=== PATIENT | female | born 1970 | race Caucasian/White ===

== ENCOUNTER → 2017-02-10 | Outpatient (CLI) | payer MEDICAID ==
[~2017-02-10] MED LIST: ATOR40TA PO; BACL10TA2 PO; BUPR150T5 PO; DICL13PA TD; DICL75TA PO; GABA-282 PO; HYDR-3713 PO; LISI-538 PO; MOBI15TA PO; OXYB5TA PO; PARO20TA3 PO; PAXI20TA3 PO; SOMA350T PO; TRAM50TA2 PO; VENL75CA47 PO; VITA500046 PO; hctz PO
--- NOTE | 2017-02-22 00:47 | ECWPNPC ---
PATIENT NAME: PIO OATES : 1970 GENDER: FEMALE VISIT DATE: 02/10/2017 DISCHARGE DATE: 02/10/17 1045 VISIT LOCKED DATE TIME: PHYSICIAN: DOROTHY NELSON RESOURCE: DOROTHY NELSON REASON FOR APPOINTMENT 1. BACK HISTORY OF PRESENT ILLNESS HISTORY OF PRESENT ILLNESS: HERE FOR F/U AND MANAGEMENT OF PERSISTENT NECK AND LOW BACK PAIN.LOW BACK IS WORSE AREA OPF PAIN.RATING PAIN VAS 8/10.PAIN AGGREVATED BY STANDING,SITTING AND LIFTING.CURRENTLY USING HYDROCODONE 10/325 UP TO 2 X DAY PRN FOR SEVERE PAIN EPISODES W SOME RELIEF. STATES MEDICATION IS HELPFUL AT KEEPING HER FUNCTIONAL.RECENTLY FELL AND INJURED LEFT KNEE.FOLLOWS WITH ORTHOPEDIC GROUP IN [place] AND MAY BE HAVING LEFT KNEE SURGERY.C/O LEFT LBP WORSE AREA OF PAIN. PAIN THE PATIENT DESCRIBES THE PAIN... THE PATIENT DESCRIBES THE PAIN... THE PATIENT DESCRIBES THE PAIN... FALL RISK SCREENING: SCREENING :NO FALLS IN THE PAST YEAR CURRENT MEDICATIONS TAKING NAPROXEN 500 MG TABLET 1 TABLET NEEDED ORALLY EVERY 12 HRS TAKING OXYBUTYNIN CHLORIDE 5 MG TABLET 1 TABLET ORALLY TWICE A DAY TAKING BUPROPION HCL ER (SR) 150 MG TABLET EXTENDED RELEASE 12 HOUR 1 TABLET ORALLY TWICE A DAY TAKING VENLAFAXINE HCL ER 75 MG CAPSULE EXTENDED RELEASE 24 HOUR 1 CAPSULE WITH FOOD ORALLY ONCE A DAY TAKING LISINOPRIL 20 MG TABLET 1 TABLET ORALLY ONCE A DAY TAKING ATORVASTATIN CALCIUM 40 MG TABLET 1 TABLET ORALLY ONCE A DAY TAKING HYDROCHLOROTHIAZIDE 25 MG TABLET 1 TABLET ORALLY ONCE A DAY TAKING PAROXETINE HCL 20 MG TABLET 1 TABLET IN THE MORNING ORALLY ONCE A DAY TAKING HYDROCODONE-ACETAMINOPHEN 10-325 MG TABLET 1 TABLET ORALLY Q6H PRN PAIN MDD4 TAKING BACLOFEN 20 MG TABLET 1 TABLET WITH FOOD OR MILK ORALLY QID TAKING GABAPENTIN 300 MG CAPSULE 2 CAPSULE ORALLY TID TAKING DICLOFENAC 75 MG CAPSULE 1 CAPSULE ORALLY BID NOT-TAKING ARTHROTEC 50-0.2 MG TABLET DELAYED RELEASE 1 TABLET ORALLY TWICE A DAY NOT-TAKING VALIUM 10 MG TABLET 1 ORALLY 1 TAB 1HR PRE PROC MDD1 NOT-TAKING ARTHROTEC 75-0.2 MG TABLET DELAYED RELEASE 1 TABLET ORALLY TWICE A DAY NOT-TAKING ARTHROTEC 50-0.2 MG TABLET DELAYED RELEASE 1 TABLET ORALLY TWICE A DAY NOT-TAKING FEMRING 0.05 MG/24HR RING VAGINAL EVERY 3 MOS MEDICATION LIST REVIEWED AND RECONCILED WITH THE PATIENT PAST MEDICAL HISTORY HTN HYPERLIPIDEMIA DEPRESSION ANXIETY LOW BACK PAIN OSTEOARTHRITIS CERVICLE CANCER ALLERGIES PENICILLIN (FOR ALLERGIES USE ONLY): HIVES FEVER: ALLERGY SULFA (FOR ALLERGY USE ONLY) SURGICAL HISTORY TOTAL HYSTERECTOMY 01/2008 APPENDECTOMY 01/2008 2 UMBILICAL HERNIAS REPAIRED 01/2008 RIGHT CARPAL TUNNEL REPAIR 02/2005 LEFT CARPAL TUNNEL REPAIR 04/2005 LEFT ROTATOR CUFF REPAIR 03/2014 SOCIAL HISTORY GENERAL: PAIN CLINIC PFS, CLERGY, PUBLIC HEALTH REFERRALS CLERGY REFERRAL NEEDED?NO WAS THE PROVIDER NOTIFIED OF ANY PERTINENT INFO?NO PFS REFERRAL NEEDED?NO PUBLIC HEALTH REFERRAL NEEDED?NO PATIENT: ____. HOSPITALIZATION/MAJOR DIAGNOSTIC PROCEDURE CHILD 1990,1997,2000 SURGERIES REVIEW OF SYSTEMS CONSTITUTIONAL: ANY CHANGE IN YOUR MEDICAL CONDITION? YES, DIAGNOSED WITH OSTEOARTHRITIS, NEW ALLERGY TO SULFA . CHILLS NO . FEVER NO . INFECTION: DO YOU HAVE NEW INFECTIONS? NO . DO YOU HAVE HISTORY OF MRSA? NO . MUSCULOSKELETAL: ANY NEW PATTERNS OF PAIN OR NUMBNESS? NO . GASTROENTEROLOGY: ANY NEW CHANGE IN BOWEL CONTROL? NO . GENITOURINARY: ANY NEW CHANGE IN BLADDER CONTROL? NO . IS THERE A CHANCE YOU COULD BE ? NO . HEMATOLOGY/LYMPH: DO YOU TAKE ANY BLOOD THINNERS? (FOR EXAMPLE- COUMADIN, PLAVIX, AGGRENOX, PLATEL, PRADAXA, OR XARELTO) NO . WHEN WAS YOUR LAST DOSE? DATE: TIME: . NEUROLOGY: HAVE YOU FALLEN IN THE PAST 6 MONTHS? YES, FELL DOWN STEP A COUPLE OF TIMES THIS PAST WINTER, NO INJURIES . ANY NEW EXTREMITY NUMBNESS OR WEAKNESS? NO . CARDIOLOGY: DO YOU HAVE A PACEMAKER OR DEFIBRILLATOR? NO . RESPIRATORY: HAVE YOU BEEN SICK IN THE PAST WEEK? NO . FEVER NO . FLU LIKE SYMPTOMS? NO . COUGH NO . INTEGUMENTARY: DO YOU HAVE ANY RASHES OR OPEN SORES? NO . ALLERGIC/IMMUNO: ARE YOU ALLERGIC TO SHELLFISH OR IV DYE? NO . ANY NEW ALLERGIES? YES, SULFA . PSYCHIATRIC: DO YOU HAVE THOUGHTS OF HURTING YOURSELF OR SOMEONE ELSE? NO . ARE YOU ABUSED, NEGLECTED, OR IN AN UNSAFE ENVIRONMENT? NO . ENDOCRINOLOGY: ARE YOU DIABETIC? NO . OTHER: DO YOU NEED ANY PRESCRIPTIONS? YES . IF YES, PLEASE LIST: ____HYDROCODONE . ANY NEW PROBLEMS WITH YOUR MEDICATIONS? NO . WHEN DID YOU LAST EAT? ____ . WHEN DID YOU LAST DRINK? ____ . WHAT DID YOU LAST DRINK? ____ . NAME OF PERSON DRIVING YOU HOME? ____ . DO YOU HAVE ANY OTHER QUESTIONS OR CONCERNS NO . REVIEWED BY: PROVIDER: DOROTHY MATHEW . VITAL SIGNS WT 276.2 LBS, HT 66 IN, BMI 44.57 INDEX, BP 133/62 MM HG, HR 80 /MIN, RR 18 /MIN, TEMP 98.8 F, OXYGEN SAT % 95, NA INITIALS HS, REVIEWED BY: AD. EXAMINATION GENERAL EXAMINATION: LUNGS:LUNG SOUNDS ARE CLEAR. HEART:HEART RATE REGULAR. MUSCULOSKELETAL:*, MUSCLE STRENGTH TESTING 5/5 BLE. PALPATION: POSITIVE FOR PAIN OVER L/S SPINE. POSITIVE FOR PAIN OVER L/S PARASPINALS.SPECIFIC POINT TENDERNESS OVER LEFT SIJ. CERVICAL SPINE-TENDER W PALPATION OVER CERVICAL SPINE.ROJM FULL WITH INCREASE IN NECK PAIN.MUSCLE STRENGTH TESTING 5/5 BILATERAL UPPER EXT.. DIAGNOSTIC: . ASSESSMENTS SACROILIAC JOINT PAIN - M53.3 (PRIMARY) PROTRUSION OF INTERVERTEBRAL DISC OF LUMBOSACRAL REGION - M51.27 CHRONIC PRESCRIPTION OPIATE USE - Z79.891 TREATMENT SACROILIAC JOINT PAIN REFILL HYDROCODONE-ACETAMINOPHEN TABLET, 10-325 MG, 1 TABLET, ORALLY, Q6H PRN PAIN MDD4, 30 DAY(S), 120, REFILLS 0 NOTES: ISTOP REGISTRY REVIEWED AND DEMNOSTRATES COMPLLIANCE. BRINGS IN MEDICATIONS WHICH IS APPROPRIATE FOR WHAT WAS DISPENSED. RECENT URINE TOXICOLOGY REVIEWED. NO UNAUTHORIZED MEDICATIONS. NO ILLICIT SUBSTANCES AND PRESCRIBED MEDICATIONS WERE PRESENT. , RISKS AND BENEFITS OF NARCOTIC/OPIOD MEDICATIONS WERE REVIEWED WITH PATIENT - THIS INCLUDES BUT IS NOT LIMITED TO RISK OF DEPENDANCE/DEVELOPMENT OF ADDICTION, MOOD DISTURBANCE AND DEPRESSION, OSTEOPOROSIS, HORMONAL AND LABIDAL CHANGES, RESPIRATORY DEPRESSION AND . PATIENT IS ADVISED NOT TO DRIVE WHILE ON THESE MEDICATIONS. PROCEDURE CODES FA211 ESTABILISHED PATIENT [facility] CHARGE DISPOSITION & COMMUNICATION FOLLOW UP 3 WEEKS ELECTRONICALLY SIGNED BY PRIYANKA HENDERSON ON 02/21/2017 AT 04:34 PM EDT DISCLAIMER : THIS IS A VISIT SUMMARY EXTRACTED FROM THE [employer] CHART. IT IS NOT A COPY OF THE [employer] PROGRESS NOTE. MTDD
== END ==
LOC: M PAIN 09:40
PROVIDERS: ATTEND Nurse Practitioner Family
DX: Z09 Encounter for follow-up examination after completed treatment for conditions other than malignant neoplasm (principal); G89.29 Other chronic pain; M53.3 Sacrococcygeal disorders, not elsewhere classified; M51.27 Other intervertebral disc displacement, lumbosacral region; I10 Essential (primary) hypertension; E78.5 Hyperlipidemia, unspecified; F32.9 Major depressive disorder, single episode, unspecified; F41.9 Anxiety disorder, unspecified; M19.90 Unspecified osteoarthritis, unspecified site; Z88.0 Allergy status to penicillin; Z88.2 Allergy status to sulfonamides; Z79.891 Long term (current) use of opiate analgesic; Z79.899 Other long term (current) drug therapy

== ENCOUNTER → 2017-03-18 | Outpatient (CLI) | payer OTHER ==
--- NOTE | 2017-03-18 23:18 | ECWPNPC ---
PATIENT NAME: PIO OATES : 1970 GENDER: FEMALE VISIT DATE: 03/18/2017 DISCHARGE DATE: 03/18/17941 VISIT LOCKED DATE TIME: PHYSICIAN: DOROTHY NELSON RESOURCE: DOROTHY NELSON REASON FOR APPOINTMENT 1. LOW BACK HISTORY OF PRESENT ILLNESS HISTORY OF PRESENT ILLNESS: HERE FOR F/U AND MANAGEMENT OF PERSISTENT NECK AND LOW BACK PAIN.LOW BACK IS WORSE AREA OPF PAIN.RATING PAIN VAS 7/10.PAIN AGGREVATED BY STANDING,SITTING AND LIFTING.CURRENTLY USING HYDROCODONE 10/325 UP TO 2 X DAY PRN FOR SEVERE PAIN EPISODES W SOME RELIEF. STATES MEDICATION IS HELPFUL AT KEEPING HER FUNCTIONAL.RECENTLY FELL AND INJURED LEFT KNEE.FOLLOWS WITH ORTHOPEDIC GROUP IN [place] AND MAY BE HAVING LEFT KNEE SURGERY.C/O LEFT LBP WORSE AREA OF PAIN. PAIN THE PATIENT DESCRIBES THE PAIN... THE PATIENT DESCRIBES THE PAIN... THE PATIENT DESCRIBES THE PAIN... THE PATIENT DESCRIBES THE PAIN... FALL RISK SCREENING: SCREENING :NO FALLS IN THE PAST YEAR CURRENT MEDICATIONS TAKING NAPROXEN 500 MG TABLET 1 CAP ORALLY EVERY 12 HRS TAKING OXYBUTYNIN CHLORIDE 5 MG TABLET 1 TABLET ORALLY TWICE A DAY TAKING BUPROPION HCL ER (SR) 150 MG TABLET EXTENDED RELEASE 12 HOUR 1 TABLET ORALLY TWICE A DAY TAKING VENLAFAXINE HCL ER 75 MG CAPSULE EXTENDED RELEASE 24 HOUR 1 CAPSULE WITH FOOD ORALLY ONCE A DAY TAKING LISINOPRIL 20 MG TABLET 1 TABLET ORALLY ONCE A DAY TAKING ATORVASTATIN CALCIUM 40 MG TABLET 1 TABLET ORALLY ONCE A DAY TAKING HYDROCHLOROTHIAZIDE 25 MG TABLET 1 TABLET ORALLY ONCE A DAY TAKING PAROXETINE HCL 20 MG TABLET 1 TABLET IN THE MORNING ORALLY ONCE A DAY TAKING BACLOFEN 20 MG TABLET 1 TABLET WITH FOOD OR MILK ORALLY QID TAKING GABAPENTIN 300 MG CAPSULE 2 CAPSULE ORALLY TID TAKING DICLOFENAC 75 MG CAPSULE 1 CAPSULE ORALLY BID TAKING HYDROCODONE-ACETAMINOPHEN 10-325 MG TABLET 1 TABLET ORALLY Q6H PRN PAIN MDD4 NOT-TAKING ARTHROTEC 50-0.2 MG TABLET DELAYED RELEASE 1 TABLET ORALLY TWICE A DAY NOT-TAKING VALIUM 10 MG TABLET 1 ORALLY 1 TAB 1HR PRE PROC MDD1 NOT-TAKING ARTHROTEC 75-0.2 MG TABLET DELAYED RELEASE 1 TABLET ORALLY TWICE A DAY NOT-TAKING ARTHROTEC 50-0.2 MG TABLET DELAYED RELEASE 1 TABLET ORALLY TWICE A DAY NOT-TAKING FEMRING 0.05 MG/24HR RING VAGINAL EVERY 3 MOS MEDICATION LIST REVIEWED AND RECONCILED WITH THE PATIENT PAST MEDICAL HISTORY HTN HYPERLIPIDEMIA DEPRESSION ANXIETY LOW BACK PAIN OSTEOARTHRITIS CERVICLE CANCER ALLERGIES PENICILLIN (FOR ALLERGIES USE ONLY): HIVES FEVER: ALLERGY SULFA (FOR ALLERGY USE ONLY): HIVES SURGICAL HISTORY TOTAL HYSTERECTOMY 01/2008 APPENDECTOMY 01/2008 2 UMBILICAL HERNIAS REPAIRED 01/2008 RIGHT CARPAL TUNNEL REPAIR 02/2005 LEFT CARPAL TUNNEL REPAIR 04/2005 LEFT ROTATOR CUFF REPAIR 03/2014 HOSPITALIZATION/MAJOR DIAGNOSTIC PROCEDURE CHILD 1990,1997,2000 SURGERIES REVIEW OF SYSTEMS CONSTITUTIONAL: ANY CHANGE IN YOUR MEDICAL CONDITION? NO . CHILLS NO . FEVER NO . INFECTION: DO YOU HAVE NEW INFECTIONS? NO . DO YOU HAVE HISTORY OF MRSA? NO . MUSCULOSKELETAL: ANY NEW PATTERNS OF PAIN OR NUMBNESS? NO . GASTROENTEROLOGY: ANY NEW CHANGE IN BOWEL CONTROL? NO . GENITOURINARY: ANY NEW CHANGE IN BLADDER CONTROL? NO . IS THERE A CHANCE YOU COULD BE ? NO . HEMATOLOGY/LYMPH: DO YOU TAKE ANY BLOOD THINNERS? (FOR EXAMPLE- COUMADIN, PLAVIX, AGGRENOX, PLATEL, PRADAXA, OR XARELTO) NO . WHEN WAS YOUR LAST DOSE? DATE: TIME: . NEUROLOGY: HAVE YOU FALLEN IN THE PAST 6 MONTHS? YES. PT STATES 01/2017, LEFT KNEE GAVE OUT AND FELL TO GROUND. PT DENIES SERIOUS INJURY, PT REPORTS BRUISES FROM FALL. PT ALSO REPORTS FALLING AGAIN IN 02/2017, LEFT KNEE GAVE OUT AGAIN. 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 . ANY NEW EXTREMITY NUMBNESS OR WEAKNESS? NO . CARDIOLOGY: DO YOU HAVE A PACEMAKER OR DEFIBRILLATOR? NO . RESPIRATORY: HAVE YOU BEEN SICK IN THE PAST WEEK? NO . FEVER NO . FLU LIKE SYMPTOMS? NO . COUGH NO . INTEGUMENTARY: DO YOU HAVE ANY RASHES OR OPEN SORES? NO . ALLERGIC/IMMUNO: ARE YOU ALLERGIC TO SHELLFISH OR IV DYE? NO . ANY NEW ALLERGIES? NO . PSYCHIATRIC: DO YOU HAVE THOUGHTS OF HURTING YOURSELF OR SOMEONE ELSE? NO . ARE YOU ABUSED, NEGLECTED, OR IN AN UNSAFE ENVIRONMENT? NO . ENDOCRINOLOGY: ARE YOU DIABETIC? NO . OTHER: DO YOU NEED ANY PRESCRIPTIONS? YES, HYDROCODONE . IF YES, PLEASE LIST: ____ . ANY NEW PROBLEMS WITH YOUR MEDICATIONS? NO . WHEN DID YOU LAST EAT? ____ . WHEN DID YOU LAST DRINK? ____ . WHAT DID YOU LAST DRINK? ____ . NAME OF PERSON DRIVING YOU HOME? ____ . DO YOU HAVE ANY OTHER QUESTIONS OR CONCERNS NO . REVIEWED BY: PROVIDER: DOROTHY MATHEW . VITAL SIGNS WT 274 LBS, HT 66 IN, BMI 44.22 INDEX, BP 147/83 MM HG, HR 66 /MIN, RR 18 /MIN, TEMP 98.5 F, OXYGEN SAT % 94, SAFE IN ENV? (Y/N) Y, REVIEWED BY: EM. EXAMINATION GENERAL EXAMINATION: LUNGS:LUNG SOUNDS ARE CLEAR. HEART:HEART RATE REGULAR. MUSCULOSKELETAL:*, MUSCLE STRENGTH TESTING 5/5 BLE. PALPATION: POSITIVE FOR PAIN OVER L/S SPINE. POSITIVE FOR PAIN OVER L/S PARASPINALS.SPECIFIC POINT TENDERNESS OVER LEFT SIJ. CERVICAL SPINE-TENDER W PALPATION OVER CERVICAL SPINE.ROJM FULL WITH INCREASE IN NECK PAIN.MUSCLE STRENGTH TESTING 5/5 BILATERAL UPPER EXT.. DIAGNOSTIC:MRI L/S [id number] LEVEL DISC DISPLACEMENT. ASSESSMENTS PROTRUSION OF INTERVERTEBRAL DISC OF LUMBOSACRAL REGION - M51.27 (PRIMARY) CHRONIC PRESCRIPTION OPIATE USE - Z79.891 TREATMENT PROTRUSION OF INTERVERTEBRAL DISC OF LUMBOSACRAL REGION NOTES: I AM GOING TO REQUEST A LUMBAR INTERLAMINAR EPIDURAL STEROID INJECTION L4/5. PREVENTIVE MEDICINE PAIN CLINIC TEACHING: PROCEDURE TEACHING PT GIVEN INFORMATION AND REVIEWED WITH PT FOR LE. PT EXPRESSED UNDERSTANDING OF INSTRUCTIONS.. PROCEDURE CODES FA211 ESTABILISHED PATIENT [facility] CHARGE DISPOSITION & COMMUNICATION FOLLOW UP 2WK POST (REASON: I AM GOING TO REQUEST A LUMBAR INTERLAMINAR EPIDURAL STEROID INJECTION L4/5) ELECTRONICALLY SIGNED BY PRIYANKA HENDERSON ON 03/18/2017 AT 12:19 PM EDT DISCLAIMER : THIS IS A VISIT SUMMARY EXTRACTED FROM THE [employer] CHART. IT IS NOT A COPY OF THE [employer] PROGRESS NOTE. OLIVIA
== END ==
LOC: M PAIN 08:40
PROVIDERS: ATTEND Nurse Practitioner Family
DX: G89.29 Other chronic pain (principal); M51.27 Other intervertebral disc displacement, lumbosacral region; M54.2 Cervicalgia; I10 Essential (primary) hypertension; E78.2 Mixed hyperlipidemia; F32.9 Major depressive disorder, single episode, unspecified; F41.9 Anxiety disorder, unspecified; M19.90 Unspecified osteoarthritis, unspecified site; Z88.0 Allergy status to penicillin; Z88.2 Allergy status to sulfonamides; Z79.891 Long term (current) use of opiate analgesic; Z79.899 Other long term (current) drug therapy

== ENCOUNTER → 2017-04-26 | Outpatient (CLI) | payer OTHER ==
[~2017-04-26] MED LIST changes: -ATOR40TA PO; +ATOR40TA75 PO; +ISOVUE-M 300 61% 15ML VIAL (Q9967) As Ordered ONE; +LIDOCAINE 1% SDV INJ 30 ML VIAL As Ordered ONE; -OXYB5TA PO; +OXYB5TAB10 PO; +PAXI20TA29 PO; -PAXI20TA3 PO; +methylPREDNISolone SUSP 40 MG/ML (DEPO-medrol) VIAL (J1030) As Ordered ONE
--- NOTE | 2017-04-26 13:50 | REP ---
FLUOROSCOPIC GUIDANCE: The images were reviewed with Dr. Treviño. The patient has a history of low back pain. The portable C-arm is provided in the OR for Dr. Park for fluoroscopic guidance. Three intraoperative fluoroscopic spot films are obtained for needle placement verification for lumbar epidural injection. The films are on the PACS system and are available for review. 12 seconds of fluoroscopy time was utilized for this procedure. Reviewed by MAKI Almonte 04/26/2017 02:19 PEdited and Signed by Denny Treviño MD 04/26/2017 05:08 P
--- NOTE | 2017-05-10 23:18 | ECWPNPC ---
PATIENT NAME: PIO OATES : 1970 GENDER: FEMALE VISIT DATE: 04/26/2017 DISCHARGE DATE: 04/26/17 1149 VISIT LOCKED DATE TIME: PHYSICIAN: ANJANA PULIDO RESOURCE: ANJANA PULIDO REASON FOR APPOINTMENT 1. INTERLAMINAL LE, L4/L5 HISTORY OF PRESENT ILLNESS HISTORY OF PRESENT ILLNESS: PAIN THE PATIENT DESCRIBES THE PAIN... FALL RISK SCREENING: SCREENING :NO FALLS IN THE PAST YEAR CURRENT MEDICATIONS TAKING NAPROXEN 500 MG TABLET 1 CAP ORALLY EVERY 12 HRS, NOTES: 04-26-17 TAKING OXYBUTYNIN CHLORIDE 5 MG TABLET 1 TABLET ORALLY TWICE A DAY, NOTES: 04-26-17599 TAKING BUPROPION HCL ER (SR) 150 MG TABLET EXTENDED RELEASE 12 HOUR 1 TABLET ORALLY TWICE A DAY, NOTES: 04-26-17599 TAKING VENLAFAXINE HCL ER 75 MG CAPSULE EXTENDED RELEASE 24 HOUR 1 CAPSULE WITH FOOD ORALLY ONCE A DAY, NOTES: 04-26-17599 TAKING LISINOPRIL 20 MG TABLET 1 TABLET ORALLY ONCE A DAY, NOTES: 2099 TAKING ATORVASTATIN CALCIUM 40 MG TABLET 1 TABLET ORALLY ONCE A DAY, NOTES: 04-25-172099 TAKING HYDROCHLOROTHIAZIDE 25 MG TABLET 1 TABLET ORALLY ONCE A DAY, NOTES: 04-26-17599 TAKING PAROXETINE HCL 20 MG TABLET 1 TABLET ORALLY ONCE A DAY, NOTES: 04-25-172099 TAKING BACLOFEN 20 MG TABLET 1 TABLET WITH FOOD OR MILK ORALLY QID, NOTES: 04-26-17599 TAKING GABAPENTIN 300 MG CAPSULE 2 CAPSULE ORALLY TID, NOTES: 04-26-17599 TAKING HYDROCODONE-ACETAMINOPHEN 10-325 MG TABLET 1 TABLET ORALLY Q6H PRN PAIN MDD4, NOTES: 04-24-17 TAKING VALIUM 10 MG TABLET 1 ORALLY 1 TAB 1HR PRE PROC MDD1, NOTES: 04-26-17 1019 NOT-TAKING DICLOFENAC 75 MG CAPSULE 1 CAPSULE ORALLY BID, NOTES: ON HOLD NOT-TAKING ARTHROTEC 50-0.2 MG TABLET DELAYED RELEASE 1 TABLET ORALLY TWICE A DAY NOT-TAKING ARTHROTEC 75-0.2 MG TABLET DELAYED RELEASE 1 TABLET ORALLY TWICE A DAY NOT-TAKING ARTHROTEC 50-0.2 MG TABLET DELAYED RELEASE 1 TABLET ORALLY TWICE A DAY NOT-TAKING FEMRING 0.05 MG/24HR RING VAGINAL EVERY 3 MOS MEDICATION LIST REVIEWED AND RECONCILED WITH THE PATIENT PAST MEDICAL HISTORY HTN HYPERLIPIDEMIA DEPRESSION ANXIETY LOW BACK PAIN OSTEOARTHRITIS CERVICLE CANCER ALLERGIES PENICILLIN (FOR ALLERGIES USE ONLY): HIVES FEVER: ALLERGY SULFA (FOR ALLERGY USE ONLY): HIVES REVIEW OF SYSTEMS REVIEWED BY: PROVIDER: . CONSTITUTIONAL: ANY CHANGE IN YOUR MEDICAL CONDITION? NO . CHILLS NO . FEVER NO . INFECTION: DO YOU HAVE NEW INFECTIONS? NO . DO YOU HAVE HISTORY OF MRSA? NO . MUSCULOSKELETAL: ANY NEW PATTERNS OF PAIN OR NUMBNESS? YES, NEW LEFT SIDELOW BACK AND DOWN THE LEFT LEG. NUMBNESS . GASTROENTEROLOGY: ANY NEW CHANGE IN BOWEL CONTROL? NO . GENITOURINARY: ANY NEW CHANGE IN BLADDER CONTROL? NO . IS THERE A CHANCE YOU COULD BE ? NO . HEMATOLOGY/LYMPH: DO YOU TAKE ANY BLOOD THINNERS? (FOR EXAMPLE- COUMADIN, PLAVIX, AGGRENOX, PLATEL, PRADAXA, OR XARELTO) NO . WHEN WAS YOUR LAST DOSE? DATE: TIME: . NEUROLOGY: HAVE YOU FALLEN IN THE PAST 6 MONTHS? YES . ANY NEW EXTREMITY NUMBNESS OR WEAKNESS? NO . CARDIOLOGY: DO YOU HAVE A PACEMAKER OR DEFIBRILLATOR? NO . RESPIRATORY: HAVE YOU BEEN SICK IN THE PAST WEEK? NO . FEVER NO . FLU LIKE SYMPTOMS? NO . COUGH NO . INTEGUMENTARY: DO YOU HAVE ANY RASHES OR OPEN SORES? NO . ALLERGIC/IMMUNO: ARE YOU ALLERGIC TO SHELLFISH OR IV DYE? NO . ANY NEW ALLERGIES? NO . PSYCHIATRIC: DO YOU HAVE THOUGHTS OF HURTING YOURSELF OR SOMEONE ELSE? NO . ARE YOU ABUSED, NEGLECTED, OR IN AN UNSAFE ENVIRONMENT? NO . ENDOCRINOLOGY: ARE YOU DIABETIC? NO . OTHER: DO YOU NEED ANY PRESCRIPTIONS? YES . IF YES, PLEASE LIST: HYDROCODONES - JELLY SENT TO DOROTHY NELSON NP . ANY NEW PROBLEMS WITH YOUR MEDICATIONS? NO . WHEN DID YOU LAST EAT? 04-25=-17 6PM . WHEN DID YOU LAST DRINK? 04-26- 0600 . WHAT DID YOU LAST DRINK? WATER . NAME OF PERSON DRIVING YOU HOME? NEMO KUMAR . DO YOU HAVE ANY OTHER QUESTIONS OR CONCERNS NO . VITAL SIGNS WT 260.0 LBS, HT 66 IN, BMI 41.96 INDEX, BP 142/88 MM HG, HR 82 /MIN, RR 16 /MIN, TEMP 99.0 F, OXYGEN SAT % 96%, NA INITIALS TL 0932, REVIEWED BY: CM. ASSESSMENTS INTERVERTEBRAL DISC DISORDERS WITH RADICULOPATHY, LUMBOSACRAL REGION - M51.17 (PRIMARY) PROCEDURES PRE PROCEDURE DIAGNOSIS LUMBOSACRAL DISC DISORDER WITH RADICULOPATHY POST PROCEDURE DIAGNOSIS LUMBOSACRAL DISC DISORDER WITH RADICULOPATHY PROCEDURE LUMBAR EPIDURAL STEROID INJECTION UNDER FLUOROSCOPIC GUIDANCE SURGEON DR. 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 I EVALUATE THE PATIENT AND REVIEWED THE CHART. I WENT OVER THE RISKS, ALTERNATIVES, AND BENEFITS ASSOCIATED WITH THIS PROCEDURE. THE PATIENT WOULD LIKE TO PROCEED AND GIVE CONSENT TO PERFORMED THE PROCEDURE. THE PATIENT DENIES UNEXPLAINABLE WEIGHT LOSS, FEVER, CHILLS, OR NEW CHANGES IN URINARY OR BOWEL CONTROL. DESCRIPTION OF PROCEDURE THE PATIENT WAS BROUGHT TO THE PROCEDURE ROOM AND PLACED IN THE PRONE POSITION. THE LUMBOSACRAL AREA WAS CLEANED WITH BETADINE SOLUTION AND DRAPED ASEPTICALLY. THE PROCEDURE WAS DONE UNDER STERILE CONDITIONS. I CHECKED LATERALITY AND THE LEVEL WHERE THE PROCEDURE WAS GOING TO BE PERFORMED WITH THE PATIENT AND THE SUPPORTING STAFF AT THE MOMENT OF THE TIME OUT IN THE PROCEDURE ROOM. UNDER FLUOROSCOPIC GUIDANCE, THE TARGET POINT WAS SELECTED AT THE INTERLAMINAR LEVEL OF L5-S1. LIDOCAINE WAS USED TO NUMB THE SKIN AND THE SUBCUTANEOUS TISSUE BELOW IT. EPIDURAL TUOHY NEEDLE, 17-GAUGE, WAS ADVANCED UNDER FLUOROSCOPIC GUIDANCE AND FOLLOWING PATIENT FEEDBACK UNTIL THE EPIDURAL SPACE WAS REACHED, 7 CM DEEP INTO THE SKIN BY THE LOSS OF RESISTANCE TECHNIQUE. ISOVUE M DYE 30%, 0.25 ML, WAS INJECTED SHOWING ADEQUATE SPREAD OF THE DYE. THEN, A SOLUTION OF 3 ML OF NORMAL SALINE WITH DEPO-MEDROL 60 MG WAS INJECTED SLOWLY FOLLOWING PATIENT FEEDBACK. THERE WAS NO EVIDENCE OF BLOOD, PARESTHESIA OR CEREBROSPINAL FLUID DURING THE PROCEDURE. THE PATIENT WAS SENT TO THE RECOVERY ROOM. THE PATIENT WAS MOVING THE EXTREMITIES AND DOING WELL. THERE WAS NO COMPLICATION DURING THE PROCEDURE. FLUOROSCOPY TIME WAS 12 SECONDS. POST PROCEDURE NOTE THE PATIENT WILL BE SEEN IN A FOLLOW UP IN THE NEXT FEW WEEKS. INSTRUCTIONS WERE GIVEN, QUESTIONS WERE ANSWERED, AND THE PATIENT EXPRESSED UNDERSTANDING AND AGREES WITH THE PLAN. I, JODI BALDWIN, DOCUMENTED THE ABOVE INFORMATION ACTING A SCRIBE FOR DR. PULIDO. I, DR. PULIDO, HAVE REVIEWED THE ABOVE DOCUMENT, SCRIBED BY JODI BALDWIN, AND I VERIFY THAT IT IS ACCURATE DIAGNOSTIC IMAGING [facility] FLUORO GUIDE SPINE INJECTION (PAIN)[id number] PROCEDURE CODES 27786 LUMBAR/SACRAL W/ IMAGING 6045F RADXPS IN END [id number] PXD DISPOSITION & COMMUNICATION FOLLOW UP 3 WEEKS ELECTRONICALLY SIGNED BY ANJANA PULIDO MD ON 05/10/2017 AT 09:47 PM EDT DISCLAIMER : THIS IS A VISIT SUMMARY EXTRACTED FROM THE [employer] CHART. IT IS NOT A COPY OF THE [employer] PROGRESS NOTE. MTDD
== END ==
LOC: M PAIN 09:00
PROVIDERS: ATTEND Anesthesiology
DX: G89.29 Other chronic pain (principal); M54.5 Low back pain; M51.17 Intervertebral disc disorders with radiculopathy, lumbosacral region; I10 Essential (primary) hypertension; E78.5 Hyperlipidemia, unspecified; F32.9 Major depressive disorder, single episode, unspecified; F41.9 Anxiety disorder, unspecified; Z79.891 Long term (current) use of opiate analgesic; Z79.899 Other long term (current) drug therapy; Z88.0 Allergy status to penicillin; Z88.2 Allergy status to sulfonamides

== ENCOUNTER → 2017-05-23 | Outpatient (CLI) | payer OTHER ==
[~2017-05-23] MED LIST changes: -ISOVUE-M 300 61% 15ML VIAL (Q9967) As Ordered ONE; -LIDOCAINE 1% SDV INJ 30 ML VIAL As Ordered ONE; -methylPREDNISolone SUSP 40 MG/ML (DEPO-medrol) VIAL (J1030) As Ordered ONE
--- NOTE | 2017-05-23 23:11 | ECWPNPC ---
PATIENT NAME: PIO OATES : 1970 GENDER: FEMALE VISIT DATE: 05/23/2017 DISCHARGE DATE: 05/23/17 1058 VISIT LOCKED DATE TIME: PHYSICIAN: DOROTHY NELSON RESOURCE: DOROTHY NELSON REASON FOR APPOINTMENT 1. POST PROCEDURE. HISTORY OF PRESENT ILLNESS HISTORY OF PRESENT ILLNESS: HERE FOR POST PROCEDURE F/U.HAD L4/5 LESI,ON 04-26-17 WITH ONLY 24HR RELIEF POST PROCEDURE.PAIN VAS 8/10 ACROSS LOW BACK.PAIN IS AGGREVATED BY STANDING.CURRENTLY USING BACLOFEN 20MG QID,GABAPENTIN 600MG TID AND HYDROCODONE 10/325 Q6H PRN WITH SOME RELIEF.HAS BEEN REFERRED TO DR. TIAN,NEUROSURGERY FOR EVALUATION OF LOW BACK PAIN AND BILATERAL LEG PAIN AND PARATHESIA. PAIN THE PATIENT DESCRIBES THE PAIN... FALL RISK SCREENING: SCREENING :NO FALLS IN THE PAST YEAR CURRENT MEDICATIONS TAKING NAPROXEN 500 MG TABLET 1 CAP ORALLY EVERY 12 HRS TAKING OXYBUTYNIN CHLORIDE 5 MG TABLET 1 TABLET ORALLY TWICE A DAY TAKING BUPROPION HCL ER (SR) 150 MG TABLET EXTENDED RELEASE 12 HOUR 1 TABLET ORALLY TWICE A DAY TAKING VENLAFAXINE HCL ER 75 MG CAPSULE EXTENDED RELEASE 24 HOUR 1 CAPSULE WITH FOOD ORALLY ONCE A DAY TAKING LISINOPRIL 20 MG TABLET 1 TABLET ORALLY ONCE A DAY TAKING ATORVASTATIN CALCIUM 40 MG TABLET 1 TABLET ORALLY ONCE A DAY TAKING HYDROCHLOROTHIAZIDE 25 MG TABLET 1 TABLET ORALLY ONCE A DAY TAKING PAROXETINE HCL 20 MG TABLET 1 TABLET ORALLY ONCE A DAY TAKING BACLOFEN 20 MG TABLET 1 TABLET WITH FOOD OR MILK ORALLY QID TAKING GABAPENTIN 300 MG CAPSULE 2 CAPSULE ORALLY TID TAKING HYDROCODONE-ACETAMINOPHEN 10-325 MG TABLET 1 TABLET ORALLY Q6H PRN PAIN MDD4 NOT-TAKING VALIUM 10 MG TABLET 1 ORALLY 1 TAB 1HR PRE PROC MDD1 NOT-TAKING DICLOFENAC 75 MG CAPSULE 1 CAPSULE ORALLY BID, NOTES: ON HOLD NOT-TAKING ARTHROTEC 50-0.2 MG TABLET DELAYED RELEASE 1 TABLET ORALLY TWICE A DAY NOT-TAKING ARTHROTEC 75-0.2 MG TABLET DELAYED RELEASE 1 TABLET ORALLY TWICE A DAY NOT-TAKING ARTHROTEC 50-0.2 MG TABLET DELAYED RELEASE 1 TABLET ORALLY TWICE A DAY NOT-TAKING FEMRING 0.05 MG/24HR RING VAGINAL EVERY 3 MOS MEDICATION LIST REVIEWED AND RECONCILED WITH THE PATIENT PAST MEDICAL HISTORY HTN HYPERLIPIDEMIA DEPRESSION ANXIETY LOW BACK PAIN OSTEOARTHRITIS CERVICLE CANCER ALLERGIES PENICILLIN (FOR ALLERGIES USE ONLY): HIVES FEVER: ALLERGY SULFA (FOR ALLERGY USE ONLY): HIVES SURGICAL HISTORY TOTAL HYSTERECTOMY 01/2008 APPENDECTOMY 01/2008 2 UMBILICAL HERNIAS REPAIRED 01/2008 RIGHT CARPAL TUNNEL REPAIR 02/2005 LEFT CARPAL TUNNEL REPAIR 04/2005 LEFT ROTATOR CUFF REPAIR 03/2014 HOSPITALIZATION/MAJOR DIAGNOSTIC PROCEDURE CHILD 1990,1997,2000 SURGERIES REVIEW OF SYSTEMS REVIEWED BY: PROVIDER: DOROTHY MATHEW . CONSTITUTIONAL: ANY CHANGE IN YOUR MEDICAL CONDITION? NO . CHILLS NO . FEVER NO . INFECTION: DO YOU HAVE NEW INFECTIONS? NO . DO YOU HAVE HISTORY OF MRSA? NO . MUSCULOSKELETAL: ANY NEW PATTERNS OF PAIN OR NUMBNESS? NO . GASTROENTEROLOGY: ANY NEW CHANGE IN BOWEL CONTROL? NO . GENITOURINARY: ANY NEW CHANGE IN BLADDER CONTROL? NO . IS THERE A CHANCE YOU COULD BE ? NO . HEMATOLOGY/LYMPH: DO YOU TAKE ANY BLOOD THINNERS? (FOR EXAMPLE- COUMADIN, PLAVIX, AGGRENOX, PLATEL, PRADAXA, OR XARELTO) NO . WHEN WAS YOUR LAST DOSE? DATE: TIME: . NEUROLOGY: HAVE YOU FALLEN IN THE PAST 6 MONTHS? YES, PT STATES SHE FELL IN APRIL [address], LEGS BECAME TINGLY AND WEAK, NUMBNESS. PT DENIES SEEKING MEDICAL ATTENTION FOR FALL . ANY NEW EXTREMITY NUMBNESS OR WEAKNESS? NO . CARDIOLOGY: DO YOU HAVE A PACEMAKER OR DEFIBRILLATOR? NO . RESPIRATORY: HAVE YOU BEEN SICK IN THE PAST WEEK? NO . FEVER NO . FLU LIKE SYMPTOMS? NO . COUGH NO . INTEGUMENTARY: DO YOU HAVE ANY RASHES OR OPEN SORES? NO . ALLERGIC/IMMUNO: ARE YOU ALLERGIC TO SHELLFISH OR IV DYE? NO . ANY NEW ALLERGIES? NO . PSYCHIATRIC: DO YOU HAVE THOUGHTS OF HURTING YOURSELF OR SOMEONE ELSE? NO . ARE YOU ABUSED, NEGLECTED, OR IN AN UNSAFE ENVIRONMENT? NO . ENDOCRINOLOGY: ARE YOU DIABETIC? NO . OTHER: DO YOU NEED ANY PRESCRIPTIONS? YES, HYDROCODONE-APAP . IF YES, PLEASE LIST: ____ . ANY NEW PROBLEMS WITH YOUR MEDICATIONS? NO . WHEN DID YOU LAST EAT? ____ . WHEN DID YOU LAST DRINK? ____ . WHAT DID YOU LAST DRINK? ____ . NAME OF PERSON DRIVING YOU HOME? ____ . DO YOU HAVE ANY OTHER QUESTIONS OR CONCERNS NO . VITAL SIGNS WT 271.2 LBS, HT 66 IN, BMI 43.77 INDEX, BP 130/75 MM HG, HR 72 /MIN, RR 16 /MIN, TEMP 97.5 F, OXYGEN SAT % 94%, SAFE IN ENV? (Y/N) Y, NA INITIALS AK 09:55, REVIEWED BY: EM. EXAMINATION GENERAL EXAMINATION: LUNGS:LUNG SOUNDS ARE CLEAR. HEART:HEART RATE REGULAR. MUSCULOSKELETAL:*, MUSCLE STRENGTH TESTING 5/5 BLE. PALPATION: POSITIVE FOR PAIN OVER L/S SPINE. POSITIVE FOR PAIN OVER L/S PARASPINALS.SPECIFIC POINT TENDERNESS OVER LEFT SIJ. CERVICAL SPINE-TENDER W PALPATION OVER CERVICAL SPINE.ROJM FULL WITH INCREASE IN NECK PAIN.MUSCLE STRENGTH TESTING 5/5 BILATERAL UPPER EXT.. DIAGNOSTIC:MRI L/S [id number] LEVEL DISC DISPLACEMENT. ASSESSMENTS INTERVERTEBRAL DISC DISORDERS WITH RADICULOPATHY, LUMBOSACRAL REGION - M51.17 (PRIMARY) CHRONIC PRESCRIPTION OPIATE USE - Z79.891 TREATMENT INTERVERTEBRAL DISC DISORDERS WITH RADICULOPATHY, LUMBOSACRAL REGION START BUTRANS PATCH WEEKLY, 20 MCG/HR, 1 PATCH TO SKIN, TRANSDERMAL, Q7 DAYS=MDD, 30 DAY(S), 4, REFILLS 2 CONTINUE BACLOFEN TABLET, 20 MG, 1 TABLET WITH FOOD OR MILK, ORALLY, QID CONTINUE GABAPENTIN CAPSULE, 300 MG, 2 CAPSULE, ORALLY, TID REFILL HYDROCODONE-ACETAMINOPHEN TABLET, 10-325 MG, 1 TABLET, ORALLY, Q6H PRN PAIN MDD4, 30 DAY(S), 120, REFILLS 0 NOTES: L4/5 LESI, ISTOP REGISTRY REVIEWED AND DEMNOSTRATES COMPLLIANCE. BRINGS IN MEDICATIONS WHICH IS APPROPRIATE FOR WHAT WAS DISPENSED. RECENT URINE TOXICOLOGY REVIEWED. NO UNAUTHORIZED MEDICATIONS. NO ILLICIT SUBSTANCES AND PRESCRIBED MEDICATIONS WERE PRESENT. , RISKS AND BENEFITS OF NARCOTIC/OPIOD MEDICATIONS WERE REVIEWED WITH PATIENT - THIS INCLUDES BUT IS NOT LIMITED TO RISK OF DEPENDANCE/DEVELOPMENT OF ADDICTION, MOOD DISTURBANCE AND DEPRESSION, OSTEOPOROSIS, HORMONAL AND LABIDAL CHANGES, RESPIRATORY DEPRESSION AND . PATIENT IS ADVISED NOT TO DRIVE WHILE ON THESE MEDICATIONS. PREVENTIVE MEDICINE PAIN CLINIC TEACHING: MEDICATIONS INSTRUCTIONS REGARDING NEW MEDICATION BUTRANS PATCH REVIEWED WITH PT. VERBALIZED UNDERSTANDING. PRINTED INFORMATION PROVIDED TO PT.. PROCEDURE TEACHING PRE LUMBAR EPIDURAL STEROID INSTRUCTIONS REVIEWED WITH PT. VERBALIZED UNDERSTANDING.. DISPOSITION & COMMUNICATION FOLLOW UP 2WK POST (REASON: L4/5 LESI) ELECTRONICALLY SIGNED BY PRIYANKA HENDERSON ON 05/23/2017 AT 01:53 PM EDT DISCLAIMER : THIS IS A VISIT SUMMARY EXTRACTED FROM THE ECLINICALWORKS CHART. IT IS NOT A COPY OF THE ECL[employer]ICALWORKS PROGRESS NOTE. OLIVIA
== END ==
LOC: M PAIN 10:00
PROVIDERS: ATTEND Nurse Practitioner Family
DX: G89.29 Other chronic pain (principal); M51.17 Intervertebral disc disorders with radiculopathy, lumbosacral region; I10 Essential (primary) hypertension; E78.5 Hyperlipidemia, unspecified; F32.9 Major depressive disorder, single episode, unspecified; F41.9 Anxiety disorder, unspecified; M19.90 Unspecified osteoarthritis, unspecified site; Z88.0 Allergy status to penicillin; Z88.2 Allergy status to sulfonamides; Z79.891 Long term (current) use of opiate analgesic; Z79.899 Other long term (current) drug therapy

== ENCOUNTER → 2017-08-31 | Outpatient (CLI) | payer OTHER, MEDICAID ==
--- NOTE | 2017-09-18 23:49 | ECWPNPC ---
PATIENT NAME: PIO OATES : 1970 GENDER: FEMALE VISIT DATE: 08/31/2017 DISCHARGE DATE: 08/31/17 1329 VISIT LOCKED DATE TIME: PHYSICIAN: ANJANA PULIDO RESOURCE: ANJANA PULIDO REASON FOR APPOINTMENT 1. LOW BACK PAIN HISTORY OF PRESENT ILLNESS HISTORY OF PRESENT ILLNESS: PAIN THE PATIENT DESCRIBES THE PAIN... 47 YEAR OLD FEMALE PATIENT WITH HISTORY OF CHRONIC LOW BACK PAIN. PATIENT DESCRIES THE PAIN ACHING, TENDER, THROBBING, SORE, AND HAVING IT ALL THE TIME WITH A PAIN SCORE OF 8/10. THE PATIENT STATES HER PAIN STARTED 5 YEARS AGO WHEN SHE ROLLED A TRACTOR IN HER YARD. PATIENT IS CURRENTLY USING HYDROCODONE, GABAPENTIN, AND BACLOFEN FOR PAIN MANAGEMENT AND STATES THAT THE MEDICATION TAKES THE EDGE OFF. PATIENT REPORTS HAVING PAIN DOWN BOTH LEGS BUT MORE SEVERE IN THE RIGHT SIDE. PATIENT STATES THAT ANY TYPE OF ACTIVITY INCREASES THE PAIN IN HER LOWER BACK AND LEGS. PATIENT DENIES UNEXPLAINABLE WEIGHT LOSS, FEVER, CHILLS, NEW CHANGES ON HER URINARY OR BOWEL CONTROL. FALL RISK SCREENING: SCREENING :NO FALLS IN THE PAST YEAR CURRENT MEDICATIONS TAKING OXYBUTYNIN CHLORIDE 5 MG TABLET 1 TABLET ORALLY TWICE A DAY TAKING BUPROPION HCL ER (SR) 150 MG TABLET EXTENDED RELEASE 12 HOUR 1 TABLET ORALLY TWICE A DAY TAKING VENLAFAXINE HCL ER 75 MG CAPSULE EXTENDED RELEASE 24 HOUR 1 CAPSULE WITH FOOD ORALLY ONCE A DAY TAKING LISINOPRIL 20 MG TABLET 1 TABLET ORALLY ONCE A DAY TAKING ATORVASTATIN CALCIUM 80 MG TABLET 1 TABLET ORALLY ONCE A DAY TAKING HYDROCHLOROTHIAZIDE 25 MG TABLET 1 TABLET ORALLY ONCE A DAY TAKING PAROXETINE HCL 20 MG TABLET 1 TABLET ORALLY ONCE A DAY TAKING BACLOFEN 20 MG TABLET 1 TABLET WITH FOOD OR MILK ORALLY QID TAKING GABAPENTIN 300 MG CAPSULE 2 CAPSULE ORALLY TID TAKING HYDROCODONE-ACETAMINOPHEN 10-325 MG TABLET 1 TABLET ORALLY Q6H PRN PAIN MDD4 TAKING DICLOFENAC 75 MG CAPSULE 1 CAPSULE ORALLY BID, NOTES: ON HOLD TAKING ASPIRIN ADULT LOW DOSE 81 MG TABLET DELAYED RELEASE 1 TABLET ORALLY ONCE A DAY DISCONTINUED NAPROXEN 500 MG TABLET 1 CAP ORALLY EVERY 12 HRS DISCONTINUED BUTRANS 20 MCG/HR PATCH WEEKLY 1 PATCH TO SKIN TRANSDERMAL Q7 DAYS=MDD DISCONTINUED VALIUM 10 MG TABLET 1 ORALLY 1 TAB 1HR PRE PROC MDD1 DISCONTINUED ARTHROTEC 50-0.2 MG TABLET DELAYED RELEASE 1 TABLET ORALLY TWICE A DAY DISCONTINUED ARTHROTEC 75-0.2 MG TABLET DELAYED RELEASE 1 TABLET ORALLY TWICE A DAY DISCONTINUED ARTHROTEC 50-0.2 MG TABLET DELAYED RELEASE 1 TABLET ORALLY TWICE A DAY UNKNOWN FEMRING 0.05 MG/24HR RING VAGINAL EVERY 3 MOS MEDICATION LIST REVIEWED AND RECONCILED WITH THE PATIENT PAST MEDICAL HISTORY HTN HYPERLIPIDEMIA DEPRESSION ANXIETY LOW BACK PAIN OSTEOARTHRITIS CERVICLE CANCER ALLERGIES PENICILLIN (FOR ALLERGIES USE ONLY): HIVES FEVER: ALLERGY SULFA (FOR ALLERGY USE ONLY): HIVES SOCIAL HISTORY GENERAL: TOBACCO USE ARE YOU A:NONSMOKER ALCOHOL SCREENING POINTS0 INTERPRETATIONNEGATIVE RECREATIONAL DRUG USE DRUG USE?NO CAFFEINE CAFFEINE USE?YES HOW OFTEN AND HOW MUCH? DAILY BASIS PAIN CLINIC PFS, CLERGY, PUBLIC HEALTH REFERRALS PFS REFERRAL NEEDED?NO CLERGY REFERRAL NEEDED?NO PUBLIC HEALTH REFERRAL NEEDED?NO WAS THE PROVIDER NOTIFIED OF ANY PERTINENT INFO?NO HAS THE PATIENT BEEN EDUCATED REGARDING HIS/HER PLAN OF CARE?YES HAS THE PATIENT BEEN EDUCATED REGARDING PAIN, THE RISK FOR PAIN, THE IMPORTANCE OF EFFECTIVE PAIN MANAGEMENT, AND THE PAIN ASSESSMENT PROCESS?YES PATIENT: ____. REVIEW OF SYSTEMS REVIEWED BY: PROVIDER: ANJANA PULIDO MD . CONSTITUTIONAL: ANY CHANGE IN YOUR MEDICAL CONDITION? YES, HAD A STROKE ON May. RIGHT SIDE IS AFFECTED. ALSO HAS DEVELOPED BELLS PALSEY RIGHT SIDE . CHILLS NO . FEVER NO . INFECTION: DO YOU HAVE NEW INFECTIONS? NO . DO YOU HAVE HISTORY OF MRSA? NO . MUSCULOSKELETAL: ANY NEW PATTERNS OF PAIN OR NUMBNESS? YES, LEFT SIDE IS HURTING MORE AND GOING DOWN THE LEG. . GASTROENTEROLOGY: ANY NEW CHANGE IN BOWEL CONTROL? NO . GENITOURINARY: ANY NEW CHANGE IN BLADDER CONTROL? NO . IS THERE A CHANCE YOU COULD BE ? NO . HEMATOLOGY/LYMPH: DO YOU TAKE ANY BLOOD THINNERS? (FOR EXAMPLE- COUMADIN, PLAVIX, AGGRENOX, PLATEL, PRADAXA, OR XARELTO) NO . WHEN WAS YOUR LAST DOSE? DATE: TIME: . NEUROLOGY: HAVE YOU FALLEN IN THE PAST 6 MONTHS? YES . ANY NEW EXTREMITY NUMBNESS OR WEAKNESS? NO . CARDIOLOGY: DO YOU HAVE A PACEMAKER OR DEFIBRILLATOR? NO . RESPIRATORY: HAVE YOU BEEN SICK IN THE PAST WEEK? NO . FEVER NO . FLU LIKE SYMPTOMS? NO . COUGH NO . INTEGUMENTARY: DO YOU HAVE ANY RASHES OR OPEN SORES? NO . ALLERGIC/IMMUNO: ARE YOU ALLERGIC TO SHELLFISH OR IV DYE? NO . ANY NEW ALLERGIES? NO . PSYCHIATRIC: DO YOU HAVE THOUGHTS OF HURTING YOURSELF OR SOMEONE ELSE? NO . ARE YOU ABUSED, NEGLECTED, OR IN AN UNSAFE ENVIRONMENT? NO . ENDOCRINOLOGY: ARE YOU DIABETIC? NO . OTHER: DO YOU NEED ANY PRESCRIPTIONS? NO . IF YES, PLEASE LIST: ____ . ANY NEW PROBLEMS WITH YOUR MEDICATIONS? NO . WHEN DID YOU LAST EAT? ____ . WHEN DID YOU LAST DRINK? ____ . WHAT DID YOU LAST DRINK? ____ . NAME OF PERSON DRIVING YOU HOME? ____ . DO YOU HAVE ANY OTHER QUESTIONS OR CONCERNS NO . VITAL SIGNS WT 265.2 LBS, HT 66 IN, BMI 42.80 INDEX, BP 138/80 MM HG, HR 87 /MIN, RR 16 /MIN, TEMP 98 F, NA INITIALS SC 11:08. EXAMINATION : PATIENT IS ALERT O X 3 AND COOPERATIVE. TENDERNESS IN THE LOWER BACK AND PARASPINAL MUSCLE GROUP. TENDERNESS IN THE SACROILIAC JOINT AREA. MRI OF THE LUMBAR SPINE DONE ON 05/27/16 SHOWS CANAL STENOSIS AT L3-L5 WELL FACET ARTHROPATHY. ASSESSMENTS SACROILIITIS, NOT ELSEWHERE CLASSIFIED - M46.1 (PRIMARY) SPONDYLOSIS OF LUMBAR REGION WITHOUT MYELOPATHY OR RADICULOPATHY - M47.816 SPONDYLOSIS OF LUMBOSACRAL REGION WITHOUT MYELOPATHY OR RADICULOPATHY - M47.817 TREATMENT SACROILIITIS, NOT ELSEWHERE CLASSIFIED NOTES: WE DISCUSSED SEVERAL ISSUES WITH MRS. KERR'S PAIN MANAGEMENT CASE. AT THIS TIME THE PATIENT WILL CONTINUE USING THE SAME MEDICATIONS BEFORE. I WOULD LIKE THE PATIENT TO START TIZANIDINE AT NIGHT FOR THE MUSCLE SPASMS, VOLTAREN GEL FOR THE INFLAMMATION AND DICLOFENAC FOR THE SOMATIC PAIN. PATIENT WAS ADVISED TO STOP THE MEDICATION IF SHE HAS ANY ADVERSE SIDE EFFECTS. AFTER VIEWING THE PATIENT AND WHERE THE PATIENT STATES HER WORST PAIN IS I WOULD LIEK TO PROCEED WITH A SACROILIAC JOINT INJECTION. WE DISCUSSED THE RISKS, BENENFITS, AND ALTNERATIVES OF THE INJECTION AND THE PATIENT WOULD LIKE TO PROCEED. INSTRUCTIONS WERE GIVEN, QUESTIONS WERE ANSWERED, PATIENT REPORTS UNDERSTANDING AND AGREES WITH THE PLAN. I, JODI BALDWIN, DOCUMENTED THE ABOVE INFORMATION ACTING A SCRIBE FOR DR. PULIDO. I HAVE REVIEWED THE ABOVE DOCUMENT, WRITTEN BY JODI DAVIDSON AND I VERIFY THAT IT IS ACCURATE. OTHERS START TIZANIDINE HCL TABLET, 2 MG, 1 TABLET NEEDED, ORALLY, BEFORE BEDTIME MAY REPEAT IN 5 HRS MDD2, 30 DAY(S), 50, REFILLS 1 START VOLTAREN GEL, 1 %, DIRECTED, TRANSDERMAL AT BACK, EVERY 4 HOURS NEEDED, 30 DAY(S), 1, REFILLS 2 START DICLOFENAC SODIUM TABLET DELAYED RELEASE, 75 MG, 1 TABLET WITH FOOD OR MILK, ORALLY NEEDED, TWICE A DAY, 30 DAY(S), 50, REFILLS 0 PROCEDURE CODES FA211 ESTABILISHED PATIENT [facility] FACILITY CHARGE G8427 DOC MEDS VERIFIED W/PT OR RE G4341 PAIN ASSESS POS TOOL F/U PLAN DOC DISPOSITION & COMMUNICATION FOLLOW UP [facility] AFTER APPROVAL ELECTRONICALLY SIGNED BY ANJANA PULIDO MD ON 09/18/2017 AT 09:23 PM EST DISCLAIMER : THIS IS A VISIT SUMMARY EXTRACTED FROM THE ECLINICALWORKS CHART. IT IS NOT A COPY OF THE ECLINICALWORKS PROGRESS NOTE. DALIAD
== END ==
LOC: M PAIN 10:45
PROVIDERS: ATTEND Anesthesiology
DX: M46.1 Sacroiliitis, not elsewhere classified (principal); M47.816 Spondylosis without myelopathy or radiculopathy, lumbar region; M47.817 Spondylosis without myelopathy or radiculopathy, lumbosacral region; G89.29 Other chronic pain; I10 Essential (primary) hypertension; E78.5 Hyperlipidemia, unspecified; Z79.82 Long term (current) use of aspirin; Z79.891 Long term (current) use of opiate analgesic; Z79.899 Other long term (current) drug therapy; Z88.0 Allergy status to penicillin; Z88.2 Allergy status to sulfonamides

== ENCOUNTER 2017-09-21 22:26 | Inpatient (IN) | payer MEDICAID, OTHER ==
[~2017-09-21] VITALS: Ht 165.1 cm; Wt 118.0 kg
[2017-09-21] MEDS ORDERED: ASPI81TA85 PO (22:38)
[2017-09-21] MEDS ORDERED: LISI20TA PO (22:38)
[2017-09-21 23:15] LABS: MEAN CORPUSCULAR HEMOGLOBIN 28.7 pg (27.0-33.0); MEAN CORPUSCULAR HGB CONC 33.7 g/dl (32.0-36.5); MEAN CORPUSCULAR VOLUME 85.1 fl (80.0-96.0); PLATELET COUNT, AUTOMATED 343 10^3/uL (150-450); RED CELL DISTRIBUTION WIDTH 12.4 % (11.5-14.5); WHITE BLOOD COUNT 10.2 10^3/uL (4.0-10.0)
[2017-09-21 23:39] LABS: METHADONE URINE NEGATIVE (NEGATIVE)
[2017-09-21 23:51] LABS: ALBUMIN 3.9 GM/DL (3.2-5.2); ALBUMIN/GLOBULIN RATIO 0.93 (1.00-1.93); ALKALINE PHOSPHATASE 112 U/L (45-117); ALT/SGPT 15 U/L (12-78); ANION GAP 5 MEQ/L (8-16); AST/SGOT 11 U/L (7-37); BILIRUBIN,DIRECT 0.1 MG/DL (0.0-0.2); BILIRUBIN,TOTAL 0.3 MG/DL (0.2-1.0); BLOOD UREA NITROGEN 17 MG/DL (7-18); CALCIUM LEVEL 9.2 MG/DL (8.5-10.1); CARBON DIOXIDE LEVEL 31 MEQ/L (21-32); CHLORIDE LEVEL 102 MEQ/L (98-107); CREATININE FOR GFR 0.81 MG/DL (0.55-1.02); GLOMERULAR FILTRATION RATE > 60.0 (>58); GLUCOSE, FASTING 128 MG/DL (70-105); POTASSIUM SERUM 3.8 MEQ/L (3.5-5.1); SODIUM LEVEL 138 MEQ/L (136-145); TOTAL PROTEIN 8.1 GM/DL (6.4-8.2)
[2017-09-21] MEDS ORDERED: NORC10TA21 PO (23:57)
[2017-09-21] MEDS ORDERED: TIZA2TA PO (23:57)
[2017-09-21] MEDS ORDERED: PARO30TA PO (23:57)
[2017-09-21] MEDS ORDERED: GABA-282 PO (23:57)
[2017-09-21] MEDS ORDERED: CALCCHW18 PO (23:57)
[2017-09-21] MEDS ORDERED: OXYB5TAB10 PO (23:57)
[2017-09-21] MEDS ORDERED: ASPI1CHW2 PO (23:57)
[2017-09-21] MEDS ORDERED: BACL1TAB9 PO (23:57)
[2017-09-21] MEDS ORDERED: CLOB05OI EXT (23:57)
[2017-09-21] MEDS ORDERED: LISI20TA3 PO (23:57)
[2017-09-21] MEDS ORDERED: OMEP20CA3 PO (23:57)
[2017-09-21] MEDS ORDERED: ESTR3TA PO (23:57)
[2017-09-21] MEDS ORDERED: ATOR80TA59 PO (23:57)
[2017-09-21] MEDS ORDERED: DICL75TA PO (23:57)
[2017-09-21] MEDS ORDERED: DICL1GEL3 TD (23:57)
[2017-09-21] MEDS ORDERED: VENL37TA PO (23:57)
[2017-09-22] MEDS ORDERED: MOM 30ML SUSPENSION UDC PO PRN (00:30)
[2017-09-22] MEDS ORDERED: MAALOX 30 ML SUSP *UDC PO PRN (00:30)
[2017-09-22] MEDS ORDERED: traZODone 50 MG TAB PO PRN ×2 (00:30→01:00)
[2017-09-22 01:25] VITALS: BP 138/95
[2017-09-22] MEDS ORDERED: OLANZapine 5 MG TAB PO PRN (09:45)
--- NOTE | 2017-09-22 09:58 | HPEPDOC ---
[facility] Medical History & Physical Date of Admission Sep 21, 2017 History and Physical PCP: Dr Ifeanyi Arriola ID Pain Mgmt. [facility] Pain Mgmt. Neurology. Dr Tl Arevalo ID. ATTENDING: Dr. Griffin [place] HPI: 47 yo F admitted to [facility] for unspecified depressive disorder, being medically examined today. Patient states that she has persistent chronic low back pain. She states overall it has been unchanged. She states activity makes her pain worse. She has chronic weakness in the right lower extremity. She does not use any assistive devices for ambulation. She denies numbness or tingling. She denies any changes with bowel or bladder control. She does not complain of neck pain. No weakness, numbness, or tingling in upper extremities. With pain management, she follows with [facility] pain management and was last seen 08/31/17 for sacroiliitis. SI joint injection is pending. Denies any fevers, chills, weakness, fatigue, CREWS, CP, SOB, cough, palpitations, abdominal pain, N/V/D or changes in bowel or bladder habits. PMHx: Chronic low back pain/lumbar spondylosis/sacroiliitis. [facility] pain management. Chronic pain Osteoarthritis History of CVA 05/23 with residual right-sided weakness. The patient does not use any assistive devices for ambulation. Follows with neurology, Dr. Boothe in [facility]. Dyslipidemia Hypertension OAB Anxiety Depression GERD History of cervical cancer Psoriasis PSHX: Hysterectomy Appendectomy Hernia repair Bilateral carpal tunnel release Left rotator cuff repair SOCHX: Resides in: [employer] Marital Status: Kids: 4 Employment: Unemployed Tobacco use: Denies ETOH: Denies Illicit Drugs: Denies IV Drug Use: Denies Tattoos done unprofessionally: Denies FAMHX: Mother: Alive, hypertension, dyslipidemia, depression, anxiety, fibromyalgia, degenerative disc disease, osteoarthritis, thyroid disease. Father: , rectal cancer Siblings: 2 brothers Alive, hypertension Children: Alive, hypertension, anxiety, depression. Unexpected deaths due to medical reasons: None. ROS: As noted in HPI, otherwise 11pt ROS of systems reviewed and remarkable only for LMP NA, status post hysterectomy. PE: GEN: 47 yo F, appears stated age. Well-nourished, well developed. No acute distress. Alert and oriented x 3. Teary throughout exam. HEENT: Normocephalic, atraumatic. Pupils are equal, round, and reactive to light. Extraocular movements are intact. No nystagmus appreciated. Sclera are nonicteric. Conjunctiva without injection. Nose midline. Nasal turbinates without bogginess. EACs both patent BL. TMs both visualized and fernández with good cone of light, no bulging or erythema. No facial asymmetry. Moist mucous membranes. Dentition fair. Pharynx pink and moist, no cobblestoning. Neck supple , trachea midline. No lymphadenopathy or thyromegaly appreciated. CHEST: Regular rate and rhythm, +S1, +S2 LUNGS: Clear to auscultation bilaterally. No wheezes, rales, or rhonchi. Breathing appears symmetric and easy. Patient is speaking in full sentences. No accessory muscle use. ABD: Round, soft, non-tender, non-distended. +Bowel sounds throughout. No rebound or guarding. No costovertebral angle tenderness. EXT: Pulses 2+ bilaterally dorsalis pedis and radial. No lower extremity edema appreciated. SKIN: [place], dry, warm. Capillary refill <2sec. No rashes. NEURO: Alert and oriented x 3. Cranial nerves III-XII are intact. No focal deficits appreciated. EKG: Pending A&P: 47 yo F admitted to [facility] for unspecified depressive disorder. 1. Psych. Plan per Psychiatry. Obtain baseline EKG to assure the safety of psychiatric medications as they can prolong the QT interval. 2. Mild leukocytosis. Patient is afebrile. Asymptomatic. Recheck CBC in a.m. 3. Chronic low back pain/chronic pain. Continue diclofenac 75 mg twice a day as needed, diclofenac gel 1% one dose topically 4 times a day as needed, baclofen 20 mg 4 times a day, gabapentin 600 mg 3 times a day, tizanidine 2 mg by mouth twice a day as needed for spasms. ISTOP reference #[id number] indicates hydrocodone 10/325 dispensed 08/24/17 #120 as per Ansley Burgos NP. Continue with hydrocodone 7.5/325 one tablet every 6 hours as needed for pain. Continue outpatient follow-up with pain management. Patient declines pain management consultation at this time. Consider pain management consultation if needed. As per last note from pain management SI injection is pending. 4. Follow up with PCP, pain management and Neurology as outpt. 5. Hypertension. Continue lisinopril 20 mg daily with hold parameters, hydrochlorothiazide 25 mg daily. 6. History of CVA. Continue aspirin 81 mg daily. Continue outpatient follow-up with neurology. 7. Dyslipidemia. Continue Lipitor 80 mg daily. 8. Psoriasis. Continue topical clobetasol cream as needed. 9. GERD. Continue Prilosec 20 mg by mouth daily. 10. OAB. Continue oxybutynin 5 mg by mouth twice a day. 11. History of cervical cancer/status post hysterectomy. Continue Premarin 0.3 mg by mouth at bedtime daily. 12. Staff member Flaca present throughout exam. Vital Signs Vital Signs Date Time Temp Pulse Resp B/P (MAP) Pulse Ox O2 Delivery O2 Flow Rate FiO2 09/22/17 01:25 99.2 72 18 138/95 96 Room Air Laboratory Data Labs 24H Laboratory Tests 2 09/21/17 23:06: Nucleated Red Blood Cells % (auto) 0.0, Anion Gap 5L, Glomerular Filtration Rate > 60.0, Calcium Level 9.2, Aspartate Amino Transf (AST/SGOT) 11, Alanine Aminotransferase (ALT/SGPT) 15, Alkaline Phosphatase 112, Total Bilirubin 0.3, Direct Bilirubin 0.1, Total Protein 8.1, Albumin 3.9, Albumin/Globulin Ratio 0.93L, Thyroid Stimulating Hormone (TSH) 2.470, Salicylates Level < 1.7L, Urine Amphetamines Screen NEGATIVE, Urine Benzodiazepines Screen NEGATIVE, Urine Opiates Screen POSITIVEH, Urine Methadone Screen NEGATIVE, Acetaminophen Level < 2.0L, Urine Barbiturates Screen NEGATIVE, Urine Phencyclidine Screen NEGATIVE , Urine Cocaine Metabolite Screen NEGATIVE, Urine Cannabinoids Screen NEGATIVE, Ethyl Alcohol Level < 0.003 CBC/BMP Laboratory Tests 09/21/17 23:06 Red Blood Count 4.71, Mean Corpuscular Volume 85.1, Mean Corpuscular Hemoglobin 28.7, Mean Corpuscular Hemoglobin Concent 33.7, Red Cell Distribution Width 12.4 Home Medications Scheduled (Aspirin) 81 Mg Chw, 81 MG PO DAILY (Lisinopril/Hydrochlorothi 20-25 mg) 1 Tab Tab, 1 TAB PO DAILY (Calcium Gummies 250-100-500 mg-Unit) 1 Chw Chw, 2 CHW PO DAILY Atorvastatin Calcium (Atorvastatin Calcium) 80 Mg Tab, 80 MG PO QHS Baclofen (Baclofen) 20 Mg Tab, 20 MG PO QID Clobetasol Propionate (Clobetasol Propionate) 0.05 % Oin, 1 DOSE EXT BID USES FOR PSORIASIS ON TOPS OF BOTH FEET Conjugated Estrogens (Premarin) 0.3 Mg Tab, 0.3 MG PO QHS Gabapentin (Gabapentin) 300 Mg Cap, 600 MG PO TID Omeprazole (Omeprazole) 20 Mg Cap, 20 MG PO DAILY Oxybutynin Chloride (Oxybutynin Chloride) 5 Mg Tab, 5 MG PO BID Paroxetine (Paroxetine HCl) 30 Mg Tab, 30 MG PO DAILY Venlafaxine HCl (Venlafaxine HCl) 37.5 Mg Tab, 37.5 MG PO DAILY Scheduled PRN (Diclofenac Sodium) 1 % Gel, 1 DOSE TD QID PRN for PAIN USES ON BACK Acetaminophen/Hydrocodone ([place] 10-325 mg) 1 Tab Tab, 1 TAB PO Q6H PRN for PAIN Diclofenac Sodium (Diclofenac Sodium Dr) 75 Mg Tab, 75 MG PO BID PRN for PAIN Tizanidine HCl (Tizanidine HCl) 2 Mg Tab, 2 MG PO BID PRN for MUSCLE SPASMS Allergies Coded Allergies: Penicillins (Verified Allergy, Intermediate, HIVES, INCREASED TEMP, ) Meloxicam (Verified Adverse Reaction, Mild, GI DISTRESS, 12/23/14) Ayaka Muniz Sep 22, 2017 09:58
[2017-09-22] MEDS ORDERED: tiZANidine 4 MG TAB PO PRN (10:00)
[2017-09-22] MEDS ORDERED: DICLOFENAC 75 MG PO PRN (10:00)
[2017-09-22] MEDS ORDERED: ENTER DRUG NAME HERE (PATIENT'S OWN MED) TOP SCH (10:00)
[2017-09-22] MEDS: BACLOFEN 10 MG TAB PO SCH ×4 (10:01→21:05)
[2017-09-22] MEDS: ASPIRIN 81 MG CHEW TABLET PO SCH (10:01)
[2017-09-22] MEDS: VENLAFAXINE **XR** 75MG CAPSULE PO SCH (10:01)
[2017-09-22] MEDS: GABAPENTIN 300 MG CAP PO SCH ×3 (10:01→21:05)
[2017-09-22] MEDS: LISINOPRIL 20 MG TAB PO SCH (10:07)
[2017-09-22] MEDS: hydroCHLOROthiazide 25 MG TAB PO SCH (10:07)
[2017-09-22] MEDS ORDERED: ONDANSETRON 4MG/2ML VIAL (J2405) IV PRN (10:30)
[2017-09-22] MEDS ORDERED: fentaNYL 100 MCG/2 ML INJECTION (J3010) IV PRN (10:30)
[2017-09-22] MEDS ORDERED: LR 1,000 ML IV SCH (10:30)
[2017-09-22] MEDS ORDERED: IBUPROFEN 100 MG/5 ML SUSP UDC DYE FREE PO PRN (10:30)
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
[2017-09-22] MEDS: oxyBUTYnin 5 MG TAB PO SCH ×2 (11:43→21:05)
[2017-09-22 18:00] VITALS: BP 137/80
[2017-09-22] MEDS: traZODone 100 MG TAB PO SCH (21:05)
[2017-09-22] MEDS: ATORVASTATIN 20 MG TAB PO SCH (21:05)
[2017-09-22] MEDS: CLOBETASOL PROP 0.05% OINT 30 GM EXT SCH (21:07)
[2017-09-23 06:45] VITALS: BP 127/58
[2017-09-23 07:15] LABS: MEAN CORPUSCULAR HEMOGLOBIN 27.8 pg (27.0-33.0); MEAN CORPUSCULAR HGB CONC 31.9 g/dl (32.0-36.5); PLATELET COUNT, AUTOMATED 272 10^3/uL (150-450); RED CELL DISTRIBUTION WIDTH 12.7 % (11.5-14.5); WHITE BLOOD COUNT 6.9 10^3/uL (4.0-10.0)
[2017-09-23] MEDS: OMEPRAZOLE 20 MG CAP PO SCH (08:55)
[2017-09-23] MEDS: VENLAFAXINE **XR** 75MG CAPSULE PO SCH (08:55)
[2017-09-23] MEDS: LISINOPRIL 20 MG TAB PO SCH (08:56)
[2017-09-23] MEDS: GABAPENTIN 300 MG CAP PO SCH ×3 (08:56→21:11)
[2017-09-23] MEDS: CLOBETASOL PROP 0.05% OINT 30 GM EXT SCH ×2 (08:56→21:10)
[2017-09-23] MEDS: oxyBUTYnin 5 MG TAB PO SCH ×2 (08:56→21:11)
[2017-09-23] MEDS: ASPIRIN 81 MG CHEW TABLET PO SCH (08:56)
[2017-09-23] MEDS: PARoxetine 20 MG TAB PO SCH (08:56)
[2017-09-23] MEDS: hydroCHLOROthiazide 25 MG TAB PO SCH (08:56)
[2017-09-23] MEDS: BACLOFEN 10 MG TAB PO SCH ×4 (08:56→21:11)
[2017-09-23] MEDS ORDERED: PREMARIN 0.3 MG PO SCH (09:00)
[2017-09-23] MEDS ORDERED: DICLOFENAC 1% TOP PRN (13:54)
[2017-09-23] MEDS ORDERED: IBUPROFEN 400 MG TAB PO PRN (14:15)
--- NOTE | 2017-09-23 14:15 | ECGEPIP ---
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
--- NOTE | 2017-09-23 15:58 | MHIPN ---
DATE: 09/23/2017 HISTORY: A 47-year-old female with history of depression, admitted for suicidal ideation. Patient was thinking about drinking bleach and was looking on the internet other ways to kill herself. MEDICATIONS: - Paxil 20 mg by mouth every morning - Effexor 75 mg by mouth every morning - trazodone 100 mg by mouth at bedtime SUBJECTIVE: "I'm feeling about the same." OBJECTIVE: Patient continues depressed. She is less tearful and labile. Has fair eye contact. The speech is low and monotone. Mood is depressed and anxious. Affect is restricted. No evidence of delusions or hallucinations. Memory, attention, and concentration are fair. Patient is reporting suicidal thoughts but is able to contract for safety. Insight and judgment are limited. ASSESSMENT: 1. Depression. 2. Suicidal ideation. PLAN: 1. Continue Paxil 20 mg by mouth every morning. 2. Continue Effexor 75 mg by mouth every morning. 3. Continue trazodone 100 mg by mouth at bedtime.
[2017-09-23 18:00] VITALS: BP 126/58
[2017-09-23] MEDS: ACETAMINOPHEN TAB 650MG DOSE (2X325MG) PO PRN (21:10)
[2017-09-23] MEDS: ATORVASTATIN 20 MG TAB PO SCH (21:10)
[2017-09-23] MEDS: traZODone 100 MG TAB PO SCH (21:10)
[2017-09-24 06:41] VITALS: BP 117/55
[2017-09-24] MEDS: ASPIRIN 81 MG CHEW TABLET PO SCH (08:55)
[2017-09-24] MEDS: hydroCHLOROthiazide 25 MG TAB PO SCH (08:55)
[2017-09-24] MEDS: PARoxetine 20 MG TAB PO SCH (08:56)
[2017-09-24] MEDS: BACLOFEN 10 MG TAB PO SCH ×4 (08:56→21:27)
[2017-09-24] MEDS: OMEPRAZOLE 20 MG CAP PO SCH (08:56)
[2017-09-24] MEDS: CLOBETASOL PROP 0.05% OINT 30 GM EXT SCH ×2 (08:56→21:30)
[2017-09-24] MEDS: LISINOPRIL 20 MG TAB PO SCH (08:56)
[2017-09-24] MEDS: GABAPENTIN 300 MG CAP PO SCH ×3 (08:56→21:27)
[2017-09-24] MEDS: oxyBUTYnin 5 MG TAB PO SCH ×2 (08:56→21:27)
[2017-09-24] MEDS: VENLAFAXINE **XR** 75MG CAPSULE PO SCH (08:56)
[2017-09-24] MEDS: ACETAMINOPHEN TAB 650MG DOSE (2X325MG) PO PRN (13:16)
[2017-09-24 18:00] VITALS: BP 116/53
--- NOTE | 2017-09-24 18:01 | MHIPNPDOC ---
[facility] Progress Note Progress Note DATE OF SERVICE: 09/24/17 HISTORY: 47-year-old female with history of depression admitted to our unit on a 9.39 legal status. According to the record, the patient was brought to our emergency department by her two daughters after she was having suicidal ideation for the last two days. According to the chart, stated that her of 20 years left her unexpectedly a year ago and she has been struggling with depression since then. VITAL SIGNS: See below. NEW TEST RESULTS: None CURRENT MEDICATIONS: See below. MENTAL STATUS EXAMINATION: Patient is a 47-year old female, who is alert, cooperative, dressed in personal clothes, with good eye contact Speech: Is Spontaneous and fluent Language skills are fair Thought processes including: Intact. Thought content: Goal directed Abstract reasoning, and computation: Fair. Description of associations: Good. Description of abnormal or psychotic thoughts: Denies having suicidal and homicidal ideation, denies A/V hallucinations and denies thought delusions Judgment: Improving Insight: Improving Orientation: oriented x 3 Recent and remote memory: Intact Attention span and concentration: good Language: Adequate. Fund of knowledge: Average. Mood: Euthymic. Affect: Congruent with mood. DIAGNOSES: [place] I: Major depressive disorder, recurrent ASSESSMENT: Patient is improving, she's attending groups, learning coping skills. Very insightful. MANAGEMENT PLAN: will continue on the same treatment plan TIME SPENT: 20 minutes. Vital Signs Vital Signs Date Time Temp Pulse Resp B/P (MAP) Pulse Ox O2 Delivery O2 Flow Rate FiO2 09/24/17 08:56 160/79 09/24/17 06:41 98.2 89 20 09/22/17 01:25 96 Room Air Current Medications Current Medications Acetaminophen (Tylenol Tab) 650 mg Q6HP PRN PO HEADACHE or DISCOMFORT Last administered on 09/24/17t 13:16; Start 09/22/17 at 00:30; Stop 10/22/17 at 00 :29 Acetaminophen/ Hydrocodone Bitart (Anexsia, [place] 7.5mg/325mg) 1 tab Q6HP PRN PO PAIN; Start 09/22/17 at 10:15; Stop 09/29/17 at 10:14 Al Hydrox/Mg Hydrox/Simethicone (Mylanta) 30 ml Q4HP PRN PO HEARTBURN/ INDIGESTION; Start 09/22/17 at 00:30; Stop 10/22/17 at 00:29 Aspirin (Aspirin Chewable) 81 mg DAILY PO Last administered on 09/24/17 08:55 ; Start 09/22/17 at 09:00; Stop 10/22/17 at 08:59 Atorvastatin Calcium (Lipitor) 80 mg QHS PO Last administered on 09/23/17 21: 10; Start 09/22/17 at 21:00; Stop 10/22/17 at 20:59 Baclofen (Lioresal) 20 mg QID PO Last administered on 09/24/17 16:59; Start 09/22/17 at 09:00; Stop 10/22/17 at 08:59 Clobetasol Propionate (Temovate 0.05%) 1 dose BID EXT Last administered on 08:56; Start 09/22/17 at 21:00; Stop 10/22/17 at 20:59 Fentanyl Citrate (Sublimaze) 10 mcg Q5MP PRN IV MODERATE PAIN (PS 4-7); Start 09/22/17 at 10:30; Stop 09/22/17 at 10:30; Status DC Gabapentin (Neurontin) 600 mg TID PO Last administered on 09/24/17 16:59; Start 09/22/17 at 09:00; Stop 10/22/17 at 08:59 Home Med (Med Rec Complete!) ASDIRECTED XX ; Start 09/22/17 at 00:00; Stop at 00:00; Status DC Hydrochlorothiazide (Hydrodiuril) 25 mg DAILY PO Last administered on 08:55; Start 09/22/17 at 09:00; Stop 10/22/17 at 08:59 Ibuprofen (Advil) 400 mg Q6HP PRN PO PAIN; Start 09/23/17 at 14:15; Stop at 14:14 Ibuprofen (Motrin Suspension) 100 mg Q6HP PRN PO PAIN; Start 09/22/17 at 10:30 ; Stop 10/22/17 at 10:29; Status Cancel Lactated Ringer's 1,000 ml @ 40 mls/hr Q24H IV ; Start 09/22/17 at 10:30; Stop 09/22/17 at 10:30; Status DC Lisinopril (Prinivil) 20 mg DAILY PO Last administered on 09/24/17 08:56; Start 09/22/17 at 09:00; Stop 10/22/17 at 08:59 Magnesium Hydroxide (Milk Of Magnesia) 30 ml DAILYPRN PRN PO CONSTIPATION; Start 09/22/17 at 00:30; Stop 10/22/17 at 00:29 Miscellaneous (Unresolved Patient Own Med Order) SEE LABEL COMMENTS UNRESOLVED XX ; Start 09/22/17 at 00:01; Stop 09/23/17 at 14:18; Status DC Olanzapine (ZyPREXA) 5 mg Q6HP PRN PO ANXIETY/AGITATION; Start 09/22/17 at 09: 45; Stop 10/22/17 at 09:44 Omeprazole (PriLOSEC) 20 mg DAILY PO Last administered on 09/24/17 08:56; Start 09/23/17 at 09:00; Stop 10/23/17 at 08:59 Ondansetron HCl (ZOFRAN INJection) 2 mg Q4HP PRN IV NAUSEA OR VOMITING; Start 09/22/17 at 10:30; Stop 09/22/17 at 10:30; Status DC Oxybutynin Chloride (Ditropan) 5 mg BID PO Last administered on 09/24/17 08: 56; Start 09/22/17 at 09:00; Stop 10/22/17 at 08:59 Paroxetine HCl (PAXil) 20 mg QAM PO Last administered on 09/24/17 08:56; Start 09/23/17 at 09:00; Stop 10/23/17 at 08:59 Patient Own Medication (Patient'S Own Med) 1 ea BIDP PRN PO PAIN; Start at 10:00; Stop 09/23/17 at 14:17; Status DC Patient Own Medication (Patient'S Own Med) 1 ea DAILY PO ; Start 09/23/17 at 09 :00; Stop 09/23/17 at 14:18; Status DC Patient Own Medication (Patient'S Own Med) 1 ea QIDP TOP ; Start 09/22/17 at 10 :00; Stop 09/23/17 at 13:54; Status DC Patient Own Medication (Patient'S Own Med) 1 ea QIDP PRN TOP PAIN; Start 09/23 at 13:54; Stop 09/23/17 at 14:17; Status DC Tizanidine HCl (Zanaflex) 2 mg BID PRN PO SPASMS; Start 09/22/17 at 10:00; Stop 10/22/17 at 09:59 Trazodone HCl (Desyrel) 50 mg ASDIRECTED PRN PO INSOMNIA; Start 09/22/17 at 01 :00; Stop 09/22/17 at 09:44; Status DC Trazodone HCl (Desyrel) 50 mg QHSP PRN PO INSOMNIA; Start 09/22/17 at 00:30; Stop 09/22/17 at 09:44; Status DC Trazodone HCl (Desyrel) 100 mg QPM PO Last administered on 09/23/17 21:10; Start 09/22/17 at 21:00; Stop 10/22/17 at 20:59 Venlafaxine HCl (Effexor Xr) 75 mg QAM PO Last administered on 09/24/17 08:56; Start 09/22/17 at 09:00; Stop 10/22/17 at 08:59 Allergies Coded Allergies: Penicillins (Verified Allergy, Intermediate, HIVES, INCREASED TEMP, ) Meloxicam (Verified Adverse Reaction, Mild, GI DISTRESS, 12/23/14) CARLEEN NORRIS MD Sep 24, 2017 18:01
[2017-09-24] MEDS: traZODone 100 MG TAB PO SCH (21:27)
[2017-09-24] MEDS: ATORVASTATIN 20 MG TAB PO SCH (21:27)
[2017-09-24] MEDS: ANEXSIA, NORCO 7.5MG/325MG TABLET(HYDROCODONE/APAP) PO PRN (21:28)
[2017-09-25 06:29] VITALS: BP 129/69
[2017-09-25] MEDS: BACLOFEN 10 MG TAB PO SCH ×4 (08:27→21:24)
[2017-09-25] MEDS: hydroCHLOROthiazide 25 MG TAB PO SCH (08:27)
[2017-09-25] MEDS: CLOBETASOL PROP 0.05% OINT 30 GM EXT SCH ×2 (08:27→21:24)
[2017-09-25] MEDS: oxyBUTYnin 5 MG TAB PO SCH ×2 (08:27→21:24)
[2017-09-25] MEDS: VENLAFAXINE **XR** 75MG CAPSULE PO SCH (08:28)
[2017-09-25] MEDS: LISINOPRIL 20 MG TAB PO SCH (08:28)
[2017-09-25] MEDS: ASPIRIN 81 MG CHEW TABLET PO SCH (08:28)
[2017-09-25] MEDS: OMEPRAZOLE 20 MG CAP PO SCH (08:28)
[2017-09-25] MEDS: GABAPENTIN 300 MG CAP PO SCH ×3 (08:28→21:24)
[2017-09-25] MEDS: ACETAMINOPHEN TAB 650MG DOSE (2X325MG) PO PRN (08:28)
[2017-09-25] MEDS: PARoxetine 20 MG TAB PO SCH (08:28)
--- NOTE | 2017-09-25 17:22 | MHIPNPDOC ---
[facility] Progress Note Progress Note DATE OF SERVICE: 09/25/17 HISTORY: 47-year-old female with history of depression admitted to our unit on a 9.39 legal status. According to the record, the patient was brought to our emergency department by her two daughters after she was having suicidal ideation for the last two days. According to the chart, stated that her of 20 years left her unexpectedly a year ago and she has been struggling with depression since then. Today, 09/25/17, she says she has had moments of sadness, but mostly she has been feeling better. she has realized there's things she needs to change and set boundaries. She says she feels better after her son's visit. VITAL SIGNS: See below. NEW TEST RESULTS: None CURRENT MEDICATIONS: See below. MENTAL STATUS EXAMINATION: Patient is a 47-year old female, who is alert, pleasant, cooperative, good hygiene and grooming. Speech: Normal in rate, tone and volume Language skills are fair Thought processes including: Intact. Thought content: Focused on being self sufficient and setting boundaries Abstract reasoning, and computation: Fair. Description of associations: Good. Description of abnormal or psychotic thoughts: Denies having suicidal and homicidal ideation, denies A/V hallucinations and denies thought delusions Judgment: Improving Insight: Improving Orientation: oriented x 3 Recent and remote memory: Intact Attention span and concentration: good Language: Adequate. Fund of knowledge: Average. Mood: Sad Affect: Congruent with mood. DIAGNOSES: [place] I: Major depressive disorder, recurrent ASSESSMENT: Patient received her son's visit, she feels a little sad but she has been working on her personal issues and has olga attending groups. She's insightful. MANAGEMENT PLAN: will continue on the same treatment plan TIME SPENT: 20 minutes. Vital Signs Vital Signs Date Time Temp Pulse Resp B/P (MAP) Pulse Ox O2 Delivery O2 Flow Rate FiO2 09/25/17 08:28 129/69 09/25/17 06:29 98.4 91 18 09/22/17 01:25 96 Room Air Current Medications Current Medications Acetaminophen (Tylenol Tab) 650 mg Q6HP PRN PO HEADACHE or DISCOMFORT Last administered on 09/25/17t 08:28; Start 09/22/17 at 00:30; Stop 10/22/17 at 00 :29 Acetaminophen/ Hydrocodone Bitart (Anexsia, [place] 7.5mg/325mg) 1 tab Q6HP PRN PO PAIN Last administered on 09/24/17 21:28; Start 09/22/17 at 10:15; Stop 09/29/17 at 10:14 Al Hydrox/Mg Hydrox/Simethicone (Mylanta) 30 ml Q4HP PRN PO HEARTBURN/ INDIGESTION; Start 09/22/17 at 00:30; Stop 10/22/17 at 00:29 Aspirin (Aspirin Chewable) 81 mg DAILY PO Last administered on 09/25/17 08:28 ; Start 09/22/17 at 09:00; Stop 10/22/17 at 08:59 Atorvastatin Calcium (Lipitor) 80 mg QHS PO Last administered on 09/24/17 21: 27; Start 09/22/17 at 21:00; Stop 10/22/17 at 20:59 Baclofen (Lioresal) 20 mg QID PO Last administered on 09/25/17 16:45; Start 09/22/17 at 09:00; Stop 10/22/17 at 08:59 Cetylpyridinium Chloride (Cepacol) 1 sirena Q2HP PRN PO COUGH; Start 09/24/17 at 19:45; Stop 10/24/17 at 19:44 Clobetasol Propionate (Temovate 0.05%) 1 dose BID EXT Last administered on 08:27; Start 09/22/17 at 21:00; Stop 10/22/17 at 20:59 Fentanyl Citrate (Sublimaze) 10 mcg Q5MP PRN IV MODERATE PAIN (PS 4-7); Start 09/22/17 at 10:30; Stop 09/22/17 at 10:30; Status DC Gabapentin (Neurontin) 600 mg TID PO Last administered on 09/25/17 16:45; Start 09/22/17 at 09:00; Stop 10/22/17 at 08:59 Home Med (Med Rec Complete!) ASDIRECTED XX ; Start 09/22/17 at 00:00; Stop at 00:00; Status DC Hydrochlorothiazide (Hydrodiuril) 25 mg DAILY PO Last administered on 08:27; Start 09/22/17 at 09:00; Stop 10/22/17 at 08:59 Ibuprofen (Advil) 400 mg Q6HP PRN PO PAIN; Start 09/23/17 at 14:15; Stop at 14:14 Ibuprofen (Motrin Suspension) 100 mg Q6HP PRN PO PAIN; Start 09/22/17 at 10:30 ; Stop 10/22/17 at 10:29; Status Cancel Lactated Ringer's 1,000 ml @ 40 mls/hr Q24H IV ; Start 09/22/17 at 10:30; Stop 09/22/17 at 10:30; Status DC Lisinopril (Prinivil) 20 mg DAILY PO Last administered on 09/25/17 08:28; Start 09/22/17 at 09:00; Stop 10/22/17 at 08:59 Magnesium Hydroxide (Milk Of Magnesia) 30 ml DAILYPRN PRN PO CONSTIPATION; Start 09/22/17 at 00:30; Stop 10/22/17 at 00:29 Miscellaneous (Unresolved Patient Own Med Order) SEE LABEL COMMENTS UNRESOLVED XX ; Start 09/22/17 at 00:01; Stop 09/23/17 at 14:18; Status DC Olanzapine (ZyPREXA) 5 mg Q6HP PRN PO ANXIETY/AGITATION; Start 09/22/17 at 09: 45; Stop 10/22/17 at 09:44 Omeprazole (PriLOSEC) 20 mg DAILY PO Last administered on 09/25/17 08:28; Start 09/23/17 at 09:00; Stop 10/23/17 at 08:59 Ondansetron HCl (ZOFRAN INJection) 2 mg Q4HP PRN IV NAUSEA OR VOMITING; Start 09/22/17 at 10:30; Stop 09/22/17 at 10:30; Status DC Oxybutynin Chloride (Ditropan) 5 mg BID PO Last administered on 09/25/17 08: 27; Start 09/22/17 at 09:00; Stop 10/22/17 at 08:59 Paroxetine HCl (PAXil) 20 mg QAM PO Last administered on 09/25/17 08:28; Start 09/23/17 at 09:00; Stop 10/23/17 at 08:59 Patient Own Medication (Patient'S Own Med) 1 ea BIDP PRN PO PAIN; Start at 10:00; Stop 09/23/17 at 14:17; Status DC Patient Own Medication (Patient'S Own Med) 1 ea DAILY PO ; Start 09/23/17 at 09 :00; Stop 09/23/17 at 14:18; Status DC Patient Own Medication (Patient'S Own Med) 1 ea QIDP TOP ; Start 09/22/17 at 10 :00; Stop 09/23/17 at 13:54; Status DC Patient Own Medication (Patient'S Own Med) 1 ea QIDP PRN TOP PAIN; Start 09/23 at 13:54; Stop 09/23/17 at 14:17; Status DC Tizanidine HCl (Zanaflex) 2 mg BID PRN PO SPASMS; Start 09/22/17 at 10:00; Stop 10/22/17 at 09:59 Trazodone HCl (Desyrel) 50 mg ASDIRECTED PRN PO INSOMNIA; Start 09/22/17 at 01 :00; Stop 09/22/17 at 09:44; Status DC Trazodone HCl (Desyrel) 50 mg QHSP PRN PO INSOMNIA; Start 09/22/17 at 00:30; Stop 09/22/17 at 09:44; Status DC Trazodone HCl (Desyrel) 100 mg QPM PO Last administered on 09/24/17 21:27; Start 09/22/17 at 21:00; Stop 10/22/17 at 20:59 Venlafaxine HCl (Effexor Xr) 75 mg QAM PO Last administered on 09/25/17 08:28; Start 09/22/17 at 09:00; Stop 10/22/17 at 08:59 Allergies Coded Allergies: Penicillins (Verified Allergy, Intermediate, HIVES, INCREASED TEMP, ) Meloxicam (Verified Adverse Reaction, Mild, GI DISTRESS, 12/23/14) CARLEEN NORRIS MD Sep 25, 2017 17:22
[2017-09-25 18:00] VITALS: BP 137/84
[2017-09-25] MEDS: traZODone 100 MG TAB PO SCH (21:24)
[2017-09-25] MEDS: ATORVASTATIN 20 MG TAB PO SCH (21:24)
[2017-09-25] MEDS: ANEXSIA, NORCO 7.5MG/325MG TABLET(HYDROCODONE/APAP) PO PRN (21:25)
[2017-09-25] MEDS: CEPACOL LOZENGE PO PRN (21:54)
[2017-09-26 06:44] VITALS: BP 119/61
[2017-09-26] MEDS: OMEPRAZOLE 20 MG CAP PO SCH (08:39)
[2017-09-26] MEDS: GABAPENTIN 300 MG CAP PO SCH ×2 (08:39→15:45)
[2017-09-26 08:40] VITALS: BP 119/61
[2017-09-26] MEDS: BACLOFEN 10 MG TAB PO SCH ×3 (08:40→15:45)
[2017-09-26] MEDS: hydroCHLOROthiazide 25 MG TAB PO SCH (08:40)
[2017-09-26] MEDS: ASPIRIN 81 MG CHEW TABLET PO SCH (08:40)
[2017-09-26] MEDS: PARoxetine 20 MG TAB PO SCH (08:40)
[2017-09-26] MEDS: VENLAFAXINE **XR** 75MG CAPSULE PO SCH (08:40)
[2017-09-26] MEDS: LISINOPRIL 20 MG TAB PO SCH (08:40)
[2017-09-26] MEDS: oxyBUTYnin 5 MG TAB PO SCH (08:40)
[2017-09-26] MEDS: CLOBETASOL PROP 0.05% OINT 30 GM EXT SCH (08:40)
[2017-09-26] MEDS ORDERED: DOCUSATE SODIUM 100 MG CAP PO SCH (09:00)
[2017-09-26] MEDS: CEPACOL LOZENGE PO PRN (11:39)
[2017-09-26] MEDS: ANEXSIA, NORCO 7.5MG/325MG TABLET(HYDROCODONE/APAP) PO PRN (11:39)
[2017-09-26] MEDS ORDERED: TRAZ10TA PO (15:38)
[2017-09-26] MEDS ORDERED: VENL75CA47 PO (15:38)
[2017-09-26] MEDS ORDERED: COLA100C5 PO (15:38)
[2017-09-26] MEDS ORDERED: PARO20TA3 PO (15:38)
--- NOTE | 2017-09-26 15:53 | REP ---
Bilateral lower extremity Duplex Doppler venous ultrasound: Real time compression and duplex Doppler interrogation of the bilateral lower extremity deep venous system is performed. Bilaterally, the common femoral, superficial femoral and popliteal veins are fully compressible with transducer pressure and demonstrate normal spontaneous and phasic flow, without evidence of deep venous thrombosis. Impression: No evidence of deep venous thrombosis of the bilateral lower extremity femoral popliteal venous system. Signed by Denny Treviño MD 09/26/2017 03:45 P
--- NOTE | 2017-09-26 18:04 | MHDS ---
DATE OF ADMISSION: 09/22/2017 DATE OF DISCHARGE: 09/26/2017 HISTORY OF PRESENT ILLNESS: 47-year-old female with history of depression admitted to our unit on a 939 legal status. According to the record patient was brought to our emergency department by her two daughters after she was having suicidal ideation for the last two days. Patient stated that her of 20 years left her unexpectedly a year ago and she has been struggling with depression since then. She was terminated from her job in April 2017. She recently began collecting her unemployment. Also stated that she had a stroke and her nurse practitioner at the patient clinic was trying to minimize the high amount of medication she was taking. She was taken off Wellbutrin and she was trying to decrease the Effexor and she continued taking Paxil. Patient states that a few days after that she started feeling very depressed, tearful mostly of the time. Making statements such as "I am just sad and cry all day". "I do not care for anything". Patient has severe anhedonia, low appetite, low energy poor sleep. 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 There was no evidence of psychotic symptoms. No auditory or visual hallucinations. LABS ON ADMISSION: Her CBC showed white blood cell of 10.2, rest within normal limits. CMP was unremarkable. TSH within normal limits. Urine drug screen was positive for opiates, blood alcohol level was negative. HOSPITAL COURSE: After the first interview, patient was started on Effexor XR 75 mg by mouth every morning, Paxil was decreased to 20 mg by mouth every morning and trazodone 100 mg by mouth at night with this medication the patient was stabilized. Patient had no complication during this hospital admission. Patient was motivated for treatment. Her moods improved rather quick after the increase of Paxil to 75. Patient was tolerating the medication well. So on 09/26/2017, she denied any suicidal ideation also denied homicidal thoughts. Patient also was denying auditory, visual hallucinations or delusions so she could be managed as outpatient. She wanted the to be discharged. A meeting with her family was set up and discharged after the family meeting. MEDICATIONS AT DISCHARGE: - Paxil 20 mg by mouth every morning - Effexor XR 75 mg by mouth every morning - trazodone 100 mg by mouth at night MENTAL STATUS EXAMINATION AT DISCHARGE: Patient is dressed in [facility]. Patient is calm and cooperative. Speech is clear, coherent with normal rate and is spontaneous. Patient has good eye contact. Mood is euthymic. Affect is appropriate and congruent with mood. Patient is oriented to time, place, person, and situation. Maintains attention and concentration correctly. Memory are intact. Thought process are coherent, logical and goal directed. Patient does not have auditory or visual hallucinations. Patient does not have paranoid, persecutory, somatic, grandiose or zoroastrianism delusions. Patient denies suicidal or homicidal ideation. Judgment and insight are fair. DISCHARGE DIAGNOSES: [place] I: Major depressive disorder. AX[place] II: Deferred. [place] III: Hypertension, hypercholesterolemia, chronic back pain, arthritis, status-post CVA. CONDITION AT DISCHARGE: Stable. No suicidal or homicidal ideation. No auditory or visual hallucinations. No delusions. INSTRUCTIONS TO THE PATIENT: Patient is to continue taking his medications as prescribed and followup appointments. She is advised to maintain absolute sobriety from drugs and alcohol. Patient has a scheduled appointment for medication management, individual psychotherapy, and primary care physician.
== END 2017-09-26 16:32 | disposition home or self-care (01) | DRG 754 ==
LOC: M ED 22:26 → M ED INP 09-22 00:30 → M PSY 09-22 01:30
PROVIDERS: ADMIT Psychiatry & Neurology Psychiatry; ATTEND Psychiatry & Neurology Psychiatry
DX: F32.9 Major depressive disorder, single episode, unspecified (principal); I10 Essential (primary) hypertension; E78.00 Pure hypercholesterolemia, unspecified; M54.5 Low back pain; M19.90 Unspecified osteoarthritis, unspecified site; Z86.73 Personal history of transient ischemic attack (TIA), and cerebral infarction without residual deficits; K21.9 Gastro-esophageal reflux disease without esophagitis; L40.8 Other psoriasis; E78.5 Hyperlipidemia, unspecified; F41.9 Anxiety disorder, unspecified; Z85.41 Personal history of malignant neoplasm of cervix uteri; G89.29 Other chronic pain; D72.829 Elevated white blood cell count, unspecified; Z79.899 Other long term (current) drug therapy; Z79.82 Long term (current) use of aspirin; Z88.0 Allergy status to penicillin; Z88.8 Allergy status to other drugs, medicaments and biological substances

== ENCOUNTER → 2017-10-04 | Outpatient (CLI) | payer OTHER, MEDICAID ==
[~2017-10-04] MED LIST changes: +ASPI1CHW2 PO; +ASPI81TA85 PO; +ATOR80TA59 PO; +BACL1TAB9 PO; +BUPIVACAINE HCL 0.25% 30 ML VIAL As Ordered ONE; +CALCCHW18 PO; +CLOB05OI EXT; +COLA100C5 PO; +DICL1GEL3 TD; +ESTR3TA PO; +ISOVUE-M 300 61% 15ML VIAL (Q9967) As Ordered ONE; +LIDOCAINE 1% SDV INJ 30 ML VIAL As Ordered ONE; +LISI20TA PO; +LISI20TA3 PO; +NORC10TA21 PO; +OMEP20CA3 PO; +PARO30TA PO; +TIZA2TA PO; +TRAZ10TA PO; +TRIAMCINOLONE ACETONIDE SUSP 40 MG/ML VIAL (J3301) As Ordered ONE; +VENL37TA PO
--- NOTE | 2017-10-04 11:16 | REP ---
SI joint series: Six views bilateral. History: Injection procedure for pain. 26 seconds of fluoroscopy time is reported. Findings: A sequence of six last image hold fluoroscopic spot radiographs of the SI joints document various needle positions and contrast injections associated with SI joint injection procedure. Signed by Elia Schmidt MD 10/04/2017 04:15 P
--- NOTE | 2017-10-19 00:20 | ECWPNPC ---
PATIENT NAME: PIO OATES : 1970 GENDER: FEMALE VISIT DATE: 10/04/2017 DISCHARGE DATE: 10/04/17 1007 VISIT LOCKED DATE TIME: PHYSICIAN: ANJANA PULIDO RESOURCE: ANJANA PULIDO REASON FOR APPOINTMENT 1. SIJ HISTORY OF PRESENT ILLNESS HISTORY OF PRESENT ILLNESS: PAIN THE PATIENT DESCRIBES THE PAIN... FALL RISK SCREENING: SCREENING :NO FALLS IN THE PAST YEAR CURRENT MEDICATIONS TAKING TIZANIDINE HCL 2 MG TABLET 1 TABLET NEEDED ORALLY BEFORE BEDTIME MAY REPEAT IN 5 HRS MDD2, NOTES: 10/03 2100 TAKING VOLTAREN 1 % GEL DIRECTED TRANSDERMAL AT BACK EVERY 4 HOURS NEEDED, NOTES: 10/03 2100 TAKING DICLOFENAC SODIUM 75 MG TABLET DELAYED RELEASE 1 TABLET WITH FOOD OR MILK ORALLY NEEDED TWICE A DAY, NOTES: 10/03 2100 TAKING OXYBUTYNIN CHLORIDE 5 MG TABLET 1 TABLET ORALLY TWICE A DAY, NOTES: 10/04 600 TAKING VENLAFAXINE HCL ER 75 MG CAPSULE EXTENDED RELEASE 24 HOUR 1 CAPSULE WITH FOOD ORALLY ONCE A DAY, NOTES: 10/04 600 TAKING LISINOPRIL 20 MG TABLET 1 TABLET ORALLY ONCE A DAY, NOTES: 10/03 2100 TAKING ATORVASTATIN CALCIUM 80 MG TABLET 1 TABLET ORALLY ONCE A DAY, NOTES: 10/03 2100 TAKING HYDROCHLOROTHIAZIDE 25 MG TABLET 1 TABLET ORALLY ONCE A DAY, NOTES: 10/04 600 TAKING PAROXETINE HCL 20 MG TABLET 1 TABLET ORALLY ONCE A DAY, NOTES: 10/03 2100 TAKING ASPIRIN ADULT LOW DOSE 81 MG TABLET DELAYED RELEASE 1 TABLET ORALLY ONCE A DAY, NOTES: 10/04 600 TAKING BACLOFEN 20 MG TABLET 1 TABLET WITH FOOD OR MILK ORALLY QID, NOTES: 10/04 600 TAKING GABAPENTIN 300 MG CAPSULE 2 CAPSULE ORALLY TID, NOTES: 10/04 600 TAKING HYDROCODONE-ACETAMINOPHEN 10-325 MG TABLET 1 TABLET ORALLY Q6H PRN PAIN MDD4, NOTES: 10/04 600 TAKING FEMRING 0.05 MG/24HR RING VAGINAL EVERY 3 MOS, NOTES: 07/2017 DISCONTINUED BUPROPION HCL ER (SR) 150 MG TABLET EXTENDED RELEASE 12 HOUR 1 TABLET ORALLY TWICE A DAY DISCONTINUED DICLOFENAC 75 MG CAPSULE 1 CAPSULE ORALLY BID, NOTES: ON HOLD MEDICATION LIST REVIEWED AND RECONCILED WITH THE PATIENT PAST MEDICAL HISTORY HTN HYPERLIPIDEMIA DEPRESSION ANXIETY LOW BACK PAIN OSTEOARTHRITIS CERVICLE CANCER ALLERGIES PENICILLIN (FOR ALLERGIES USE ONLY): HIVES FEVER: ALLERGY SULFA (FOR ALLERGY USE ONLY): HIVES SOCIAL HISTORY GENERAL: TOBACCO USE ARE YOU A:NONSMOKER ALCOHOL SCREENING DID YOU HAVE A DRINK CONTAINING ALCOHOL IN THE PAST YEAR?NO POINTS0 INTERPRETATIONNEGATIVE RECREATIONAL DRUG USE DRUG USE?NO CAFFEINE CAFFEINE USE?YES HOW OFTEN AND HOW MUCH? DAILY [id number]ENT[employer] LEARNING BARRIERS / SPECIAL NEEDS BARRIERS TO LEARNING?NO HEARING IMPAIRED?NO VISION IMPAIRED?YES :CORRECTIVE LENSES COGNITIVELY IMPAIRED?NO READINESS TO LEARN?YES LEARNING PREFERENCES?NO LEARNING CAPABILITIES PRESENT?YES EMOTIONAL BARRIERS?NO SPECIAL DEVICES?NO RING SORTER NEEDED?NO PAIN CLINIC PFS, CLERGY, PUBLIC HEALTH REFERRALS PFS REFERRAL NEEDED?NO CLERGY REFERRAL NEEDED?NO PUBLIC HEALTH REFERRAL NEEDED?NO WAS THE PROVIDER NOTIFIED OF ANY PERTINENT INFO?NO HAS THE PATIENT BEEN EDUCATED REGARDING HIS/HER PLAN OF CARE?YES HAS THE PATIENT BEEN EDUCATED REGARDING PAIN, THE RISK FOR PAIN, THE IMPORTANCE OF EFFECTIVE PAIN MANAGEMENT, AND THE PAIN ASSESSMENT PROCESS?YES PATIENT: ____. ADVANCE DIRECTIVES HEALTH CARE PROXY?NO WOULD YOU LIKE MORE INFORMATION?YES PACKET GIVEN DO YOU HAVE A DNR?NO WOULD YOU LIKE MORE INFORMATION?NO LIVING WILL?NO WOULD YOU LIKE MORE INFORMATION?NO POWER OF CARDROOM SUPERVISOR?NO WOULD YOU LIKE MORE INFORMATION?NO DOMESTIC VIOLENCE DO YOU FEEL SAFE IN YOUR ENVIRONMENT?YES REVIEW OF SYSTEMS REVIEWED BY: PROVIDER: . CONSTITUTIONAL: ANY CHANGE IN YOUR MEDICAL CONDITION? NO . CHILLS NO . FEVER NO . INFECTION: DO YOU HAVE NEW INFECTIONS? NO . DO YOU HAVE HISTORY OF MRSA? NO . MUSCULOSKELETAL: ANY NEW PATTERNS OF PAIN OR NUMBNESS? NO . GASTROENTEROLOGY: ANY NEW CHANGE IN BOWEL CONTROL? NO . GENITOURINARY: ANY NEW CHANGE IN BLADDER CONTROL? NO . IS THERE A CHANCE YOU COULD BE ? NO . HEMATOLOGY/LYMPH: DO YOU TAKE ANY BLOOD THINNERS? (FOR EXAMPLE- COUMADIN, PLAVIX, AGGRENOX, PLATEL, PRADAXA, OR XARELTO) NO . WHEN WAS YOUR LAST DOSE? DATE: TIME: . NEUROLOGY: HAVE YOU FALLEN IN THE PAST 6 MONTHS? YES, APPROX. 3 TIMES DUE TO HER RIGHT LEG GIVING OUT DUE TO IT BEING NUMB. . ANY NEW EXTREMITY NUMBNESS OR WEAKNESS? NO . CARDIOLOGY: DO YOU HAVE A PACEMAKER OR DEFIBRILLATOR? NO . RESPIRATORY: HAVE YOU BEEN SICK IN THE PAST WEEK? NO . FEVER NO . FLU LIKE SYMPTOMS? NO . COUGH NO . INTEGUMENTARY: DO YOU HAVE ANY RASHES OR OPEN SORES? NO . ALLERGIC/IMMUNO: ARE YOU ALLERGIC TO SHELLFISH OR IV DYE? NO . ANY NEW ALLERGIES? NO . PSYCHIATRIC: DO YOU HAVE THOUGHTS OF HURTING YOURSELF OR SOMEONE ELSE? NO . ARE YOU ABUSED, NEGLECTED, OR IN AN UNSAFE ENVIRONMENT? NO . ENDOCRINOLOGY: ARE YOU DIABETIC? NO . OTHER: DO YOU NEED ANY PRESCRIPTIONS? NO . IF YES, PLEASE LIST: ____ . ANY NEW PROBLEMS WITH YOUR MEDICATIONS? NO . WHEN DID YOU LAST EAT? 10/03/17 . WHEN DID YOU LAST DRINK? 0800 . WHAT DID YOU LAST DRINK? WATER . NAME OF PERSON DRIVING YOU HOME? TESS SURTEVANT . DO YOU HAVE ANY OTHER QUESTIONS OR CONCERNS NO . VITAL SIGNS WT 262.0 LBS, HT 66 IN, BMI 42.28 INDEX, BP 125/64 MM HG, HR 78 /MIN, RR 16 /MIN, TEMP 98.2 F, OXYGEN SAT % 93%, NA INITIALS TL 0838, REVIEWED BY: CAMILLA. ASSESSMENTS SACROILIITIS, NOT ELSEWHERE CLASSIFIED - M46.1 (PRIMARY) PROCEDURES PN SI PRE PROCEDURE DIAGNOSIS SACROILIITIS, SACROILIAC JOINT DYSFUNCTION POST PROCEDURE DIAGNOSIS SACROILIITIS, SACROILIAC JOINT DYSFUNCTION PROCEDURE BILATERAL SACROILIAC JOINT BLOCK SURGEON DR. ANJANA PULIDO [employer] NONE ANESTHESIA LOCAL PRE PROCEDURE NOTE PATIENT WITH HISTORY OF CHRONIC LOW BACK PAIN. I EVALUATED THE PATIENT AND REVIEWED THE CHART. I WENT OVER THE RISKS, ALTERNATIVES, AND BENEFITS ASSOCIATED WITH THIS PROCEDURE. THE PATIENT WOULD LIKE TO PROCEED AND GAVE CONSENT TO PERFORM THE PROCEDURE. THE PATIENT DENIES UNEXPLAINABLE WEIGHT LOSS, FEVER, CHILLS, OR NEW CHANGES IN URINARY OR BOWEL CONTROL DESCRIPTION OF PROCEDURE THE PATIENT WAS BROUGHT TO THE PROCEDURE ROOM AND PLACED IN THE PRONE POSITION. THE LUMBOSACRAL AREA WAS CLEANED WITH CHLORAPREP SOLUTION AND DRAPED ASEPTICALLY. THE PROCEDURE WAS DONE UNDER STERILE CONDITIONS. I CHECKED LATERALITY AND THE LEVEL WHERE THE PROCEDURE WAS GOING TO BE PERFORMED WITH THE PATIENT AND THE SUPPORTING STAFF AT THE MOMENT OF THE TIME OUT IN THE PROCEDURE ROOM. UNDER FLUOROSCOPIC GUIDANCE, TARGET POINT WAS SELECTED AT THE LOWER BORDER OF THE RIGHT AND LEFT SACROILIAC JOINT. TARGET POINT WAS SELECTED AFTER MEDIAL ROTATION AND TILT OF THE MAGNIFIER OF THE C-ARM. LIDOCAINE WAS USED TO NUMB THE SKIN AND SUBCUTANEOUS TISSUE BELOW IT. A SPINAL NEEDLE, 22-GAUGE, WAS ADVANCED UNDER FLUOROSCOPIC GUIDANCE AND FOLLOWING PATIENT FEEDBACK UNTIL THE TARGET AREA WAS TOUCHED. THE POSITION OF THE NEEDLE WAS VERIFIED WITH AP AND LATERAL VIEWS. AFTER PROPER POSITION OF THE NEEDLE WAS ACHIEVED, ISOVUE M DYE 30%, 0.25 ML, WAS INJECTED SHOWING SPREAD OF THE DYE. THEN, A SOLUTION OF 20 MG OF KENALOG WAS INJECTED IN RIGHT JOINT WITH 3 ML OF BUPIVACAINE 0.125%. THERE WAS NO EVIDENCE OF BLOOD, PARESTHESIA OR CEREBROSPINAL FLUID DURING THE PROCEDURE. THE PATIENT WAS SENT TO THE RECOVERY ROOM. THE PATIENT WAS MOVING THE EXTREMITIES AND DOING WELL. THERE WAS NO COMPLICATION DURING THE PROCEDURE. FLUOROSCOPY TIME WAS 26 SECONDS POST PROCEDURE NOTE THE PATIENT WILL BE SEEN IN A FOLLOW UP IN THE NEXT FEW WEEKS. INSTRUCTIONS WERE GIVEN, QUESTIONS WERE ANSWERED, AND THE PATIENT EXPRESSED UNDERSTANDING AND AGREED WITH THE PLAN. I, JODI BALDWIN, DOCUMENTED THE ABOVE INFORMATION ACTING A SCRIBE FOR DR. PULIDO. I HAVE REVIEWED THE ABOVE DOCUMENT, WRITTEN BY JODI DAVIDSON AND I VERIFY THAT IT IS [facility] FLUORO GUIDANCE (PAIN)[id number] PROCEDURE CODES 87616 INJECT SACROILIAC JOINT, MODIFIERS: 50 [id number] RADXPS IN END [id number] DISPOSITION & COMMUNICATION FOLLOW UP 3 WEEKS ELECTRONICALLY SIGNED BY ANJANA PULIDO MD ON 10/18/2017 AT 09:58 PM EST DISCLAIMER : THIS IS A VISIT SUMMARY EXTRACTED FROM THE [employer] CHART. IT IS NOT A COPY OF THE [employer] PROGRESS NOTE. MTDD
== END ==
LOC: M PAIN 08:30
PROVIDERS: ATTEND Anesthesiology
DX: G89.29 Other chronic pain (principal); M46.1 Sacroiliitis, not elsewhere classified; I10 Essential (primary) hypertension; F32.9 Major depressive disorder, single episode, unspecified; E78.5 Hyperlipidemia, unspecified; F41.9 Anxiety disorder, unspecified; M19.90 Unspecified osteoarthritis, unspecified site; Z79.82 Long term (current) use of aspirin; Z79.891 Long term (current) use of opiate analgesic; Z79.899 Other long term (current) drug therapy; Z88.0 Allergy status to penicillin; Z88.2 Allergy status to sulfonamides
CPT/HCPCS: 27096; J3301; Q9967

== ENCOUNTER → 2017-11-28 | Outpatient (CLI) | payer OTHER, MEDICAID | LOC: M PAIN 10:30 | DX: M46.1 Sacroiliitis, not elsewhere classified (principal); M51.17 Intervertebral disc disorders with radiculopathy, lumbosacral region; I10 Essential (primary) hypertension; E78.5 Hyperlipidemia, unspecified; F32.9 Major depressive disorder, single episode, unspecified; F41.9 Anxiety disorder, unspecified; Z79.82 Long term (current) use of aspirin; Z79.899 Other long term (current) drug therapy; Z79.891 Long term (current) use of opiate analgesic; Z88.0 Allergy status to penicillin; Z88.2 Allergy status to sulfonamides | CPT/HCPCS: G0463 ==

== ENCOUNTER → 2018-02-06 | Outpatient (CLI) | payer OTHER, MEDICAID | LOC: M PAIN 14:30 | DX: M46.1 Sacroiliitis, not elsewhere classified (principal); M51.17 Intervertebral disc disorders with radiculopathy, lumbosacral region; I10 Essential (primary) hypertension; E78.5 Hyperlipidemia, unspecified; F32.9 Major depressive disorder, single episode, unspecified; F41.9 Anxiety disorder, unspecified; M19.90 Unspecified osteoarthritis, unspecified site; Z79.82 Long term (current) use of aspirin; Z79.891 Long term (current) use of opiate analgesic; Z79.899 Other long term (current) drug therapy; Z88.0 Allergy status to penicillin; Z88.2 Allergy status to sulfonamides | CPT/HCPCS: G0463 ==

== ENCOUNTER → 2018-03-07 | Outpatient (CLI) | payer OTHER, MEDICAID ==
[~2018-03-07] MED LIST changes: -ASPI1CHW2 PO; -ASPI81TA85 PO; -ATOR40TA75 PO; -ATOR80TA59 PO; -BACL10TA2 PO; -BACL1TAB9 PO; +BUPIVACAINE HCL 0.25% 30 ML VIAL As Ordered; -BUPIVACAINE HCL 0.25% 30 ML VIAL As Ordered ONE; -BUPR150T5 PO; -CALCCHW18 PO; -CLOB05OI EXT; -COLA100C5 PO; -DICL13PA TD; -DICL1GEL3 TD; -DICL75TA PO; -ESTR3TA PO; -GABA-282 PO; -HYDR-3713 PO; +ISOVUE-M 300 61% 15ML VIAL (Q9967) As Ordered; -ISOVUE-M 300 61% 15ML VIAL (Q9967) As Ordered ONE; +LIDOCAINE 1% SDV INJ 30 ML VIAL As Ordered; -LIDOCAINE 1% SDV INJ 30 ML VIAL As Ordered ONE; -LISI-538 PO; -LISI20TA PO; -LISI20TA3 PO; -MOBI15TA PO; -NORC10TA21 PO; -OMEP20CA3 PO; -OXYB5TAB10 PO; -PARO20TA3 PO; -PARO30TA PO; -PAXI20TA29 PO; -SOMA350T PO; -TIZA2TA PO; -TRAM50TA2 PO; -TRAZ10TA PO; +TRIAMCINOLONE ACETONIDE SUSP 40 MG/ML VIAL (J3301) As Ordered; -TRIAMCINOLONE ACETONIDE SUSP 40 MG/ML VIAL (J3301) As Ordered ONE; -VENL37TA PO; -VENL75CA47 PO; -VITA500046 PO; -hctz PO
== END ==
LOC: M PAIN 10:00
DX: G89.29 Other chronic pain (principal); M46.1 Sacroiliitis, not elsewhere classified; I10 Essential (primary) hypertension; E78.5 Hyperlipidemia, unspecified; F32.9 Major depressive disorder, single episode, unspecified; F41.9 Anxiety disorder, unspecified; M54.5 Low back pain; Z85.41 Personal history of malignant neoplasm of cervix uteri; Z79.82 Long term (current) use of aspirin; Z79.899 Other long term (current) drug therapy; Z88.0 Allergy status to penicillin; Z88.2 Allergy status to sulfonamides
CPT/HCPCS: J3301